=== PATIENT | female | born 1940 | race Caucasian/White ===

== ENCOUNTER 2017-12-24 10:11 | Emergency (ER) | payer MEDICARE ==
[~2017-12-24 10:11] MED LIST: ACET1TAB25 PO; ALPR0.255 PO; AMLO5TAB5 PO; CITA40TA6 PO; DEXL60CA3 PO; DEXT1TAB12 PO; DICY10CA13 PO; DOXY100C2 PO; HYDR-4068 PO; INSU100V12 SQ; LEVO50 PO; LINA145C PO; LISI40TA4 PO; METH500T6 PO; PREG75 PO; RANI300T4 PO; ROSU10TA PO; TOLT2CAP21 PO; TRAM50TA4 PO
[2017-12-24] MEDS ORDERED: HYDROCODONE/ACETAMINOPHEN 5/325 MG TAB ONE (10:35)
[2017-12-24] MEDS ORDERED: LISINOPRIL 40 MG TABLET PO SCH (10:45)
[2017-12-24 11:17] LABS: CREATININE 0.8 mg/dL (0.5-1.5); POTASSIUM 4.3 mmol/L (3.5-5.1)
[2017-12-24 11:31] LABS: ALBUMIN 3.3 g/dL (3.5-5.0); BILIRUBIN,DIRECT 0.1 mg/dL (0.0-0.3); BILIRUBIN,TOTAL 0.5 mg/dL (0.2-1.0); CREATINE KINASE MB 0.8 ng/mL (0.5-3.6); TOTAL PROTEIN, SERUM 6.8 g/dL (6.0-8.3)
[2017-12-24 11:33] LABS: BASOPHILS % (AUTO) 0.4 % (0.0-5.0); HEMATOCRIT 36.3 % (36-48); LYMPHOCYTES % (AUTO) 14.2 % (21.0-51.0); MEAN CORPUSCULAR HEMOGLOBIN 26.8 pg (27.0-33.0); MEAN CORPUSCULAR HGB CONC 32.7 g/dL (32.0-36.0); MEAN CORPUSCULAR VOLUME 81.9 fL (79-99); MONOCYTES % (AUTO) 8.8 % (3.0-13.0); NEUTROPHILS % (AUTO) 75.6 % (40.0-77.0); NUCLEATED RED BLOOD CELLS 0.1 % (0.0-0.19); PLATELET COUNT (AUTO) 271 K/uL (130-400); RED BLOOD CELL COUNT(AUTO) 4.43 MIL/uL (4.00-5.50); RED CELL DISTRIBUTION WIDTH 14.9 % (11.0-15.5); WHITE BLOOD COUNT (AUTO) 10.7 K/uL (4.8-10.8)
[2017-12-24 11:35] LABS: INR 0.95 (0.85-1.15); PARTIAL THROMBOPLASTIN TIME 25.6 SEC (26.3-35.5)
== END 2017-12-24 16:10 | disposition home or self-care (01) ==
LOC: EDH 10:11
DX: G89.4 Chronic pain syndrome (principal); M25.532 Pain in left wrist; I10 Essential (primary) hypertension; M19.90 Unspecified osteoarthritis, unspecified site; R79.1 Abnormal coagulation profile; Z91.040 Latex allergy status; Z91.041 Radiographic dye allergy status; Z88.2 Allergy status to sulfonamides; Z88.6 Allergy status to analgesic agent
CPT/HCPCS: 36415; 73110; 80048; 80076; 82550; 82553; 84484; 85025; 85610; 85730; 93005

== ENCOUNTER 2018-05-13 08:39 | Emergency (ER) | payer MEDICARE ==
[2018-05-13 09:12] LABS: APPEARANCE,URINE Clear (CLEAR); BILIRUBIN,URINE Negative (NEGATIVE); COLOR,URINE Yellow (YELLOW); GLUCOSE, URINE (UA) Negative (NEGATIVE); KETONES,URINE Negative (NEGATIVE); LEUKOCYTE ESTERASE ,URINE Trace (NEGATIVE); NITRATE,URINE Negative (NEGATIVE); OCCULT BLOOD,URINE Negative (NEGATIVE); PROTEIN,URINE Negative (NEGATIVE)
[2018-05-13 09:13] LABS: BACTERIA,URINE Rare /HPF (None Seen); RBC,URINE 0-1 /HPF (0-1)
[2018-05-13 09:14] LABS: SQUAMOUS EPITHELIAL CELL,UR Rare /HPF (0-2)
== END 2018-05-13 09:30 | disposition home or self-care (01) ==
LOC: EDH 08:39
DX: M54.12 Radiculopathy, cervical region (principal); R20.2 Paresthesia of skin; M19.90 Unspecified osteoarthritis, unspecified site; I10 Essential (primary) hypertension; G89.29 Other chronic pain; M54.9 Dorsalgia, unspecified; Z88.2 Allergy status to sulfonamides; Z88.8 Allergy status to other drugs, medicaments and biological substances; Z90.710 Acquired absence of both cervix and uterus; Z90.49 Acquired absence of other specified parts of digestive tract; Z95.0 Presence of cardiac pacemaker; Z98.890 Other specified postprocedural states
CPT/HCPCS: 81001

== ENCOUNTER → 2018-08-02 | Outpatient (CLI) | payer MEDICARE | END | disposition home or self-care (01) | LOC: OIH 13:42 | PROVIDERS: ATTEND Neurological Surgery | DX: M43.16 Spondylolisthesis, lumbar region (principal); M48.061 Spinal stenosis, lumbar region without neurogenic claudication; M43.27 Fusion of spine, lumbosacral region | CPT/HCPCS: 72120 ==

== ENCOUNTER → 2019-01-28 | Outpatient (CLI) | payer MEDICARE ==
[~2019-01-28] MED LIST changes: -ROSU10TA PO; +ROSU10TA22 PO
== END | disposition home or self-care (01) ==
LOC: SHCH 09:32
PROVIDERS: ATTEND Internal Medicine Cardiovascular Disease
DX: I11.9 Hypertensive heart disease without heart failure (principal); I08.0 Rheumatic disorders of both mitral and aortic valves
CPT/HCPCS: 93306

== ENCOUNTER 2019-07-10 07:41 | Emergency (ER) | payer MEDICARE ==
[2019-07-10 09:01] LABS: BASOPHILS % (AUTO) 0.7 % (0.0-5.0); HEMATOCRIT 34.8 % (36-48); LYMPHOCYTES % (AUTO) 18.5 % (21.0-51.0); MEAN CORPUSCULAR HEMOGLOBIN 26.3 pg (27.0-33.0); MEAN CORPUSCULAR HGB CONC 32.5 g/dL (32.0-36.0); MEAN CORPUSCULAR VOLUME 80.8 fL (79-99); MONOCYTES % (AUTO) 8.2 % (3.0-13.0); NEUTROPHILS % (AUTO) 70.6 % (40.0-77.0); PLATELET COUNT (AUTO) 303 K/uL (130-400); RED BLOOD CELL COUNT(AUTO) 4.31 MIL/uL (4.00-5.50); RED CELL DISTRIBUTION WIDTH 15.3 % (11.0-15.5); WHITE BLOOD COUNT (AUTO) 8.9 K/uL (4.8-10.8)
[2019-07-10 09:07] LABS: CREATININE 0.9 mg/dL (0.5-1.5); POTASSIUM 3.5 mmol/L (3.5-5.1)
[2019-07-10 09:08] LABS: INR 0.99 (0.85-1.15); PARTIAL THROMBOPLASTIN TIME 26.7 SEC (26.3-35.5); PROTHROMBIN TIME 10.4 SEC (9.6-11.6)
[2019-07-10 09:13] LABS: ALBUMIN 3.2 g/dL (3.5-5.0); BILIRUBIN,TOTAL 0.5 mg/dL (0.2-1.0); TOTAL PROTEIN, SERUM 7.4 g/dL (6.0-8.3)
[2019-07-10 09:58] LABS: B-TYPE NATRIURETIC PEPTIDE 26 pg/mL (0-100)
== END 2019-07-10 10:35 | disposition home or self-care (01) ==
LOC: EDH 07:41
DX: B34.9 Viral infection, unspecified (principal); I10 Essential (primary) hypertension; E11.9 Type 2 diabetes mellitus without complications; I25.10 Atherosclerotic heart disease of native coronary artery without angina pectoris; Z90.49 Acquired absence of other specified parts of digestive tract; Z90.710 Acquired absence of both cervix and uterus; Z88.2 Allergy status to sulfonamides; Z88.6 Allergy status to analgesic agent; Z88.8 Allergy status to other drugs, medicaments and biological substances; Z88.4 Allergy status to anesthetic agent; Z88.1 Allergy status to other antibiotic agents; Z79.899 Other long term (current) drug therapy
CPT/HCPCS: 36415; 71045; 80053; 82550; 82948; 83605; 83880; 84484; 85025; 85610; 85730; 87040; 93005

== ENCOUNTER 2019-12-25 13:03 | Emergency (ER) | payer MEDICARE ==
[~2019-12-25 13:03] MED LIST changes: -ACET1TAB25 PO; -ALPR0.255 PO; +AMLO-257 PO; -AMLO5TAB5 PO; +CEFD300C3 PO; -CITA40TA6 PO; -DEXT1TAB12 PO; -DICY10CA13 PO; -DOXY100C2 PO; +DULO20CA18 PO; -HYDR-4068 PO; -INSU100V12 SQ; +LEVO125T11 PO; -LEVO50 PO; +LISI-613 PO; -LISI40TA4 PO; +MECL-160 PO; -METH500T6 PO; +METO25TA6 PO; +PREG100C55 PO; -PREG75 PO; -RANI300T4 PO; -ROSU10TA22 PO; +ROSU10TA28 PO; +SUCR1TAB2 PO; -TOLT2CAP21 PO; -TRAM50TA4 PO
[2019-12-25] MEDS ORDERED: SODIUM CHLORIDE 0.9% 1000ML 1,000 ML IV ONE (13:04)
[2019-12-25] MEDS ORDERED: CEFTRIAXONE SODIUM 2 GM VIAL ONE ×2 (13:41→14:03)
[2019-12-25] MEDS ORDERED: SODIUM CHLORIDE 0.9% 100 ML IV ONE ×2 (13:42→14:03)
[2019-12-25 14:26] LABS: BASOPHILS % (AUTO) 0.4 % (0.0-5.0); EOSINOPHILS % (AUTO) 0.6 % (0.0-8.0); LYMPHOCYTES % (AUTO) 17.8 % (21.0-51.0); MEAN CORPUSCULAR HEMOGLOBIN 25.8 pg (27.0-33.0); MEAN CORPUSCULAR HGB CONC 31.1 g/dL (32.0-36.0); MONOCYTES % (AUTO) 8.1 % (3.0-13.0); NEUTROPHILS % (AUTO) 72.9 % (40.0-77.0); PLATELET COUNT (AUTO) 378 K/uL (130-400); RED BLOOD CELL COUNT(AUTO) 4.58 MIL/uL (4.00-5.50); RED CELL DISTRIBUTION WIDTH 15.7 % (11.0-15.5); WHITE BLOOD COUNT (AUTO) 10.2 K/uL (4.8-10.8)
[2019-12-25 14:35] LABS: CARBON DIOXIDE 22 mmol/L (21-32); CHLORIDE 101 mmol/L (101-111); CREATININE 1.1 mg/dL (0.5-1.5); GLOMERULAR FILTR. RATE CALC 51 mL/min (>60); GLUCOSE,RANDOM 238 mg/dL (70-105); INR 0.99 (0.85-1.15); POTASSIUM 3.6 mmol/L (3.5-5.1); PROTHROMBIN TIME 10.7 SEC (9.6-11.6); SODIUM SERUM 137 mmol/L (136-145); UREA NITROGEN, BLOOD 27 mg/dL (7-18)
[2019-12-25 14:50] LABS: ALANINE AMINOTRANSFERASE 26 U/L (12-78); ALBUMIN 3.4 g/dL (3.5-5.0); ASPARTATE AMINOTRANSFERASE 54 U/L (10-37); BILIRUBIN,TOTAL 0.3 mg/dL (0.2-1.0); MYOGLOBIN 526 ng/mL (10-92); TOTAL PROTEIN, SERUM 7.4 g/dL (6.0-8.3); TROPONIN I < 0.04 ng/mL (0.00-0.06)
[2019-12-25 14:55] LABS: CREATINE KINASE, TOTAL 437 U/L (21-232)
[2019-12-25 17:03] LABS: APPEARANCE,URINE Clear (CLEAR); BILIRUBIN,URINE Negative (NEGATIVE); COLOR,URINE Yellow (YELLOW); GLUCOSE, URINE (UA) 250 mg/dL (NEGATIVE); KETONES,URINE 40 mg/dL (NEGATIVE); LEUKOCYTE ESTERASE ,URINE Negative (NEGATIVE); NITRATE,URINE Negative (NEGATIVE); OCCULT BLOOD,URINE Trace (NEGATIVE); PH,URINE 5.5 (5.0-8.0); PROTEIN,URINE POS 1+ mg/dL (NEGATIVE)
[2019-12-25 17:27] LABS: BACTERIA,URINE Few /HPF (None Seen); MUCUS,URINE Few LPF (None Seen); SQUAMOUS EPITHELIAL CELL,UR 0-2 /HPF (0-2)
== END 2019-12-25 17:32 | disposition home or self-care (01) ==
LOC: EDH 13:03
DX: E11.65 Type 2 diabetes mellitus with hyperglycemia (principal); R53.1 Weakness; I10 Essential (primary) hypertension; I25.10 Atherosclerotic heart disease of native coronary artery without angina pectoris; M19.90 Unspecified osteoarthritis, unspecified site; G89.29 Other chronic pain; M54.9 Dorsalgia, unspecified; Z95.0 Presence of cardiac pacemaker; Z90.710 Acquired absence of both cervix and uterus; Z90.49 Acquired absence of other specified parts of digestive tract; Z98.890 Other specified postprocedural states; Z88.1 Allergy status to other antibiotic agents; Z88.8 Allergy status to other drugs, medicaments and biological substances; Z88.5 Allergy status to narcotic agent; Z88.6 Allergy status to analgesic agent; Z88.2 Allergy status to sulfonamides; Z91.041 Radiographic dye allergy status
CPT/HCPCS: 36415; 71045; 80053; 81001; 82550; 82948; 83605; 83874; 84145; 84484; 85025; 85610; 85730; 87088; 87635; 87804 ×2; 93005; 96361; 96374; 99285; J0696; J7030

== ENCOUNTER 2020-01-29 14:20 | Inpatient (IN) | payer MEDICARE ==
[~2020-01-29] VITALS: Ht 152.4 cm; Wt 86.6 kg
[~2020-01-29 14:20] MED LIST changes: -AMLO-257 PO; +AMLO5TAB9 PO
[2020-01-29] MEDS ORDERED: SODIUM CHLORIDE 0.9% 1000ML 1,000 ML IV ONE (17:05)
[2020-01-29 17:18] LABS: BASOPHILS % (AUTO) 0.4 % (0.0-5.0); EOSINOPHILS % (AUTO) 0.3 % (0.0-8.0); HEMATOCRIT 34.9 % (36-48); LYMPHOCYTES % (AUTO) 13.5 % (21.0-51.0); MEAN CORPUSCULAR HGB CONC 32.7 g/dL (32.0-36.0); MEAN CORPUSCULAR VOLUME 79.7 fL (79-99); MONOCYTES % (AUTO) 4.8 % (3.0-13.0); NEUTROPHILS % (AUTO) 80.4 % (40.0-77.0); PLATELET COUNT (AUTO) 150 K/uL (130-400); RED BLOOD CELL COUNT(AUTO) 4.38 MIL/uL (4.00-5.50); RED CELL DISTRIBUTION WIDTH 14.6 % (11.0-15.5)
[2020-01-29 17:36] LABS: INR 0.98 (0.85-1.15); PROTHROMBIN TIME 10.6 SEC (9.6-11.6)
[2020-01-29 17:37] LABS: CARBON DIOXIDE 25 mmol/L (21-32); CREATININE 1.1 mg/dL (0.5-1.5); GLOMERULAR FILTR. RATE CALC 51 mL/min (>60); GLUCOSE,RANDOM 190 mg/dL (70-105); SODIUM SERUM 125 mmol/L (136-145); UREA NITROGEN, BLOOD 20 mg/dL (7-18)
[2020-01-29 17:42] LABS: CHLORIDE 90 mmol/L (101-111)
[2020-01-29 17:49] LABS: ALANINE AMINOTRANSFERASE 52 U/L (12-78); ALBUMIN 2.5 g/dL (3.5-5.0); ASPARTATE AMINOTRANSFERASE 79 U/L (10-37); BILIRUBIN,TOTAL 0.4 mg/dL (0.2-1.0); CREATINE KINASE, TOTAL 83 U/L (21-232); MYOGLOBIN 92 ng/mL (10-92); PARTIAL THROMBOPLASTIN TIME 27.7 SEC (26.3-35.5); TOTAL PROTEIN, SERUM 6.7 g/dL (6.0-8.3); TROPONIN I < 0.04 ng/mL (0.00-0.06)
[2020-01-29 17:53] LABS: APPEARANCE,URINE Cloudy (CLEAR); BILIRUBIN,URINE Small (NEGATIVE); COLOR,URINE Dark Yellow (YELLOW); GLUCOSE, URINE (UA) 500 mg/dL (NEGATIVE); KETONES,URINE Trace mg/dL (NEGATIVE); LEUKOCYTE ESTERASE ,URINE Negative (NEGATIVE); NITRATE,URINE Negative (NEGATIVE); OCCULT BLOOD,URINE Large (NEGATIVE); PH,URINE 5.5 (5.0-8.0); PROTEIN,URINE 300 mg/dL (NEGATIVE)
[2020-01-29 18:02] LABS: AMPHET/METH SCREEN,URINE NEGATIVE (NEGATIVE); BARBITURATE SCREEN, URINE NEGATIVE (NEGATIVE); BENZODIAZEPINES SCREEN,URINE NEGATIVE (NEGATIVE); CANNABINOID SCREEN,URINE NEGATIVE (NEGATIVE); COCAINE SCREEN,URINE NEGATIVE (NEGATIVE); OPIATE SCREEN,URINE NEGATIVE (NEGATIVE); PHENCYCLIDINE SCREEN,URINE NEGATIVE (NEGATIVE)
[2020-01-29 18:30] LABS: BACTERIA,URINE Few /HPF (None Seen); MUCUS,URINE Few LPF (None Seen); RBC,URINE 26-50 /HPF (0-1); SQUAMOUS EPITHELIAL CELL,UR Moderate /HPF (0-2)
[2020-01-29] MEDS ORDERED: SODIUM CHLORIDE 0.9% 1000ML 1,000 ML IV SCH (19:07)
[2020-01-29] MEDS ORDERED: ONDANSETRON HCL 4 MG/2 ML VIAL IV PRN (19:15)
[2020-01-29] MEDS ORDERED: CEFTRIAXONE SODIUM 1 GM ONE (19:21)
[2020-01-29] MEDS ORDERED: CEFTRIAXONE SODIUM 1 GM IV SCH (20:00)
[2020-01-29] MEDS: INSULIN HUMULIN R 100 UNIT/ML 3ML SQ SCH (21:00)
[2020-01-29 22:30] VITALS: BP 159/72
--- NOTE | 2020-01-30 00:59 | NUR ---
Patient unable to sign admission papers due to altered mental status.
[2020-01-30 03:47] VITALS: BP 150/77
[2020-01-30 04:02] LABS: BASOPHILS % (AUTO) 0.3 % (0.0-5.0); EOSINOPHILS % (AUTO) 0.3 % (0.0-8.0); HEMATOCRIT 31.4 % (36-48); LYMPHOCYTES % (AUTO) 11.3 % (21.0-51.0); MEAN CORPUSCULAR HEMOGLOBIN 25.8 pg (27.0-33.0); MEAN CORPUSCULAR HGB CONC 32.5 g/dL (32.0-36.0); MEAN CORPUSCULAR VOLUME 79.3 fL (79-99); MONOCYTES % (AUTO) 4.6 % (3.0-13.0); PLATELET COUNT (AUTO) 121 K/uL (130-400); RED BLOOD CELL COUNT(AUTO) 3.96 MIL/uL (4.00-5.50); RED CELL DISTRIBUTION WIDTH 14.7 % (11.0-15.5); WHITE BLOOD COUNT (AUTO) 9.4 K/uL (4.8-10.8)
[2020-01-30 04:09] LABS: CREATININE 1.1 mg/dL (0.5-1.5); POTASSIUM 3.5 mmol/L (3.5-5.1)
[2020-01-30] MEDS: INSULIN HUMULIN R 100 UNIT/ML 3ML SQ SCH ×4 (05:47→21:00)
[2020-01-30 08:39] VITALS: BP 180/78
[2020-01-30] MEDS: ENOXAPARIN SODIUM 30 MG/0.3 ML SQ SCH (09:06)
[2020-01-30] MEDS ORDERED: TEMAZEPAM 7.5 MG CAPSULE PO PRN (11:45)
[2020-01-30] MEDS: HYDRALAZINE HCL 20 MG/ML VIAL IV PRN (12:06)
[2020-01-30] MEDS: ACETAMINOPHEN 325 MG TAB PO PRN (12:08)
[2020-01-30 13:09] VITALS: BP 137/52
--- NOTE | 2020-01-30 14:45 | NUR ---
DCP CM met with pt and family discussed dc plans. Pt is independent prior to admission, lives at home with spouse. Currently with [facility]. Denies any other equipments/services. Feels safe to go back home, spouse and daughter able to assist with transportation and needs as necessary. DC plan to home once stable. CM to cont to follow up. Addendum: 01/30/20 at 1447 by SANTINO CARRASQUILLO LVN CM Amended: Links added.
[2020-01-30 16:13] VITALS: BP 141/58
[2020-01-30] MEDS: SODIUM CHLORIDE 3% 500 ML IV SCH (16:43)
[2020-01-30 17:34] LABS: CREATININE 1.1 mg/dL (0.5-1.5); POTASSIUM 3.4 mmol/L (3.5-5.1)
[2020-01-30 17:38] LABS: THYROID STIMULATING HORMONE 0.06 uIU/mL (0.36-3.74); URIC ACID 3.3 mg/dL (2.6-7.2)
[2020-01-30 19:46] VITALS: BP 106/76
[2020-01-30] MEDS ORDERED: TEMAZEPAM 7.5 MG CAPSULE PO SCH (21:00)
[2020-01-30] MEDS: CEFTRIAXONE SODIUM 1 GM IV SCH (21:48)
[2020-01-30] MEDS: SERTRALINE HCL 50 MG TABLET PO SCH (21:48)
[2020-01-30 23:58] VITALS: BP 147/67
[2020-01-31 03:45] VITALS: BP 159/72
[2020-01-31 03:48] LABS: BASOPHILS % (AUTO) 0.4 % (0.0-5.0); EOSINOPHILS % (AUTO) 0.1 % (0.0-8.0); HEMATOCRIT 31.3 % (36-48); LYMPHOCYTES % (AUTO) 9.7 % (21.0-51.0); MEAN CORPUSCULAR HEMOGLOBIN 25.5 pg (27.0-33.0); MEAN CORPUSCULAR HGB CONC 32.3 g/dL (32.0-36.0); MONOCYTES % (AUTO) 4.4 % (3.0-13.0); NEUTROPHILS % (AUTO) 84.3 % (40.0-77.0); PLATELET COUNT (AUTO) 128 K/uL (130-400); RED BLOOD CELL COUNT(AUTO) 3.96 MIL/uL (4.00-5.50); RED CELL DISTRIBUTION WIDTH 15.1 % (11.0-15.5); WHITE BLOOD COUNT (AUTO) 9.3 K/uL (4.8-10.8)
[2020-01-31 04:03] LABS: CREATININE 0.9 mg/dL (0.5-1.5); POTASSIUM 3.4 mmol/L (3.5-5.1)
[2020-01-31] MEDS: INSULIN HUMULIN R 100 UNIT/ML 3ML SQ SCH ×4 (05:49→20:19)
[2020-01-31] MEDS: SODIUM CHLORIDE 3% 500 ML IV SCH (06:52)
[2020-01-31 08:00] VITALS: BP 174/69
[2020-01-31] MEDS: CEFTRIAXONE SODIUM 1 GM IV SCH ×2 (09:05→20:19)
[2020-01-31] MEDS: ENOXAPARIN SODIUM 30 MG/0.3 ML SQ SCH (09:06)
[2020-01-31 12:00] VITALS: BP 161/75
[2020-01-31] MEDS: ACETAMINOPHEN 325 MG TAB PO PRN ×3 (12:42→23:17)
[2020-01-31] MEDS ORDERED: INSU100I3 SQ (13:07)
[2020-01-31] MEDS ORDERED: INSU100I24 SQ (13:09)
[2020-01-31] MEDS ORDERED: TRAM50TA4 PO (13:10)
[2020-01-31 16:00] VITALS: BP 145/67
[2020-01-31 19:28] VITALS: BP 148/61
[2020-01-31] MEDS: ATORVASTATIN CALCIUM 20 MG TABLET PO SCH (20:18)
[2020-01-31] MEDS: METOPROLOL TARTRATE 25 MG TAB PO SCH (20:19)
[2020-01-31] MEDS: SERTRALINE HCL 50 MG TABLET PO SCH (20:19)
[2020-01-31] MEDS: TRAMADOL HCL 50 MG TABLET PO PRN (21:02)
[2020-01-31 23:26] VITALS: BP 151/64
[2020-02-01 03:10] VITALS: BP 147/71
--- NOTE | 2020-02-01 03:26 | NUR ---
PATIENT ALERT AND ORIENTED TO SELF. SHE DOES NOT KNOW LOCATION OR REASON SHE IS IN THE HOSPITAL. FORGETFUL AND CONFUSED THROUGHOUT THE NIGHT. SHE CALLED FOR YAZ SEVERAL TIMES. REORIENTED PATIENT CONSTANTLY. PATIENT WEAK. RESTING IN BED. WEARING A BRIEF FOR INCONTINENCE. LUNG SOUNDS BASES CRACKLES. USING 2L VIA NC. NO DISTRESS NOTED. MEDICATED ONCE FOR FEVER.
[2020-02-01] MEDS: INSULIN HUMULIN R 100 UNIT/ML 3ML SQ SCH ×4 (06:10→21:25)
[2020-02-01 06:18] LABS: HEMATOCRIT 40.9 % (36-48); RED BLOOD CELL COUNT(AUTO) 5.01 MIL/uL (4.00-5.50); WHITE BLOOD COUNT (AUTO) 10.1 K/uL (4.8-10.8)
[2020-02-01 06:19] LABS: BASOPHILS % (AUTO) 0.5 % (0.0-5.0); EOSINOPHILS % (AUTO) 0.1 % (0.0-8.0); LYMPHOCYTES % (AUTO) 10.4 % (21.0-51.0); MEAN CORPUSCULAR HEMOGLOBIN 25.7 pg (27.0-33.0); MEAN CORPUSCULAR HGB CONC 31.5 g/dL (32.0-36.0); MEAN CORPUSCULAR VOLUME 81.6 fL (79-99); MONOCYTES % (AUTO) 3.4 % (3.0-13.0); NEUTROPHILS % (AUTO) 84.6 % (40.0-77.0); PLATELET COUNT (AUTO) 135 K/uL (130-400); RED CELL DISTRIBUTION WIDTH 15.7 % (11.0-15.5)
[2020-02-01] MEDS: LEVOTHYROXINE 125 MCG TABLET PO SCH (06:37)
[2020-02-01 06:53] LABS: ALBUMIN 1.9 g/dL (3.5-5.0); BILIRUBIN,TOTAL 0.4 mg/dL (0.2-1.0); POTASSIUM 3.8 mmol/L (3.5-5.1); TOTAL PROTEIN, SERUM 5.9 g/dL (6.0-8.3)
[2020-02-01 08:34] VITALS: BP 166/100
[2020-02-01] MEDS ORDERED: NON-FORMULARY MEDICATION 1 EACH (Rosuvastatin Calcium 10 MG) PO SCH (09:00)
[2020-02-01] MEDS: METOPROLOL TARTRATE 25 MG TAB PO SCH ×2 (10:26→20:02)
[2020-02-01] MEDS: AMLODIPINE BESYLATE 5 MG TAB PO SCH (10:26)
[2020-02-01] MEDS: CEFTRIAXONE SODIUM 1 GM IV SCH ×2 (10:26→20:01)
[2020-02-01] MEDS: ENOXAPARIN SODIUM 30 MG/0.3 ML SQ SCH (10:27)
[2020-02-01 11:22] VITALS: BP 162/80
[2020-02-01] MEDS: ACETAMINOPHEN 325 MG TAB PO PRN ×2 (11:53→21:43)
[2020-02-01] MEDS ORDERED: VANCOMYCIN PROTOCOL PER PHARMACY IV SCH (12:00)
--- NOTE | 2020-02-01 14:15 | NUR ---
DR. REDDY IN TO SEE PT, CONSULT REQUEST. WILL TEST PT. FOR COVIC-19. ALSO RECEIVED ORDERS TO TRANSFER PT. TO [facility]. FLOOR, REPORT CALLED TO SKYLAR. WILL DO COVIC TESTING PRIOR TO TRANSFERRING PT.
--- NOTE | 2020-02-01 15:30 | NUR ---
patient received to room 203, patient is lethargic but easily arousable and oriented. 3lnc
[2020-02-01 15:57] VITALS: BP 141/74
[2020-02-01] MEDS: VANCOMYCIN 1GM+NS 250ML 250 ML IV SCH (17:53)
[2020-02-01 19:44] VITALS: BP 167/70
[2020-02-01] MEDS: ATORVASTATIN CALCIUM 20 MG TABLET PO SCH (20:01)
[2020-02-01] MEDS: SERTRALINE HCL 50 MG TABLET PO SCH (20:02)
[2020-02-01] MEDS: HYDRALAZINE HCL 20 MG/ML VIAL IV PRN (21:48)
[2020-02-01 23:53] VITALS: BP 121/65
[2020-02-02 02:48] LABS: CREATININE,URINE RANDOM 167 mg/dL (30-135); POTASSIUM,URINE RANDOM 34 mmol/L (25-125); SODIUM,URINE RANDOM 21 mmol/l (40-220)
[2020-02-02] MEDS ORDERED: DEXAMETHASONE SOD PHOSPHATE 4 MG/ML 1ML VIAL ONE (03:08)
[2020-02-02] MEDS ORDERED: SODIUM CHLORIDE 0.9% 50 ML IV ONE (03:09)
[2020-02-02] MEDS: AMPICILLIN 2GM+NS 100ML 100 ML IV SCH ×2 (03:26)
[2020-02-02 03:42] VITALS: BP 153/73
[2020-02-02] MEDS: LACTULOSE 20 GM/30 ML UDCUP PO PRN (03:54)
[2020-02-02] MEDS: DEXAMETHASONE 10MG/ML 1ML VIAL 10 MG in SODIUM CHLORIDE 0.9% 50 ML IV SCH ×3 (05:36)
[2020-02-02] MEDS: INSULIN HUMULIN R 100 UNIT/ML 3ML SQ SCH ×5 (05:45→21:31)
[2020-02-02] MEDS: LEVOTHYROXINE 125 MCG TABLET PO SCH (05:52)
[2020-02-02 06:50] LABS: BASOPHILS % (AUTO) 0.3 % (0.0-5.0); LYMPHOCYTES % (AUTO) 8.2 % (21.0-51.0); MEAN CORPUSCULAR HEMOGLOBIN 25.3 pg (27.0-33.0); MEAN CORPUSCULAR HGB CONC 31.9 g/dL (32.0-36.0); MEAN CORPUSCULAR VOLUME 79.4 fL (79-99); MONOCYTES % (AUTO) 2.1 % (3.0-13.0); NEUTROPHILS % (AUTO) 88.4 % (40.0-77.0); PLATELET COUNT (AUTO) 156 K/uL (130-400); RED BLOOD CELL COUNT(AUTO) 4.03 MIL/uL (4.00-5.50); RED CELL DISTRIBUTION WIDTH 15.7 % (11.0-15.5); WHITE BLOOD COUNT (AUTO) 10.5 K/uL (4.8-10.8)
[2020-02-02 07:27] LABS: ALBUMIN 1.6 g/dL (3.5-5.0); CREATININE 1.2 mg/dL (0.5-1.5)
[2020-02-02 07:49] LABS: BILIRUBIN,TOTAL 0.5 mg/dL (0.2-1.0)
[2020-02-02] MEDS ORDERED: CEFTRIAXONE SODIUM 1 GM IV SCH ×2 (08:00→20:00)
[2020-02-02 08:21] VITALS: BP 155/78
[2020-02-02] MEDS: ENOXAPARIN SODIUM 80 MG/0.8 ML SQ SCH ×2 (09:22→21:20)
[2020-02-02] MEDS: AMLODIPINE BESYLATE 5 MG TAB PO SCH (09:22)
[2020-02-02] MEDS: METOPROLOL TARTRATE 25 MG TAB PO SCH ×2 (09:22→21:20)
[2020-02-02] MEDS ORDERED: POTASSIUM CHLORIDE 10% ELIXIR 20 MEQ/15 ML UDCUP PO PRN (11:00)
[2020-02-02] MEDS ORDERED: LIDOCAINE HCL-MPF 1% 2ML VIAL IJ PRN (11:00)
[2020-02-02] MEDS ORDERED: POTASSIUM CHLORIDE 20MEQ/100ML 100 ML IV PRN ×2 (11:00→16:00)
[2020-02-02] MEDS ORDERED: DEXAMETHASONE 10MG/ML 1ML VIAL 10 MG in SODIUM CHLORIDE 0.9% 50 ML IV SCH (12:00)
[2020-02-02 12:23] VITALS: BP 129/56
[2020-02-02] MEDS: VANCOMYCIN 1GM+NS 250ML 250 ML IV SCH (12:28)
[2020-02-02] MEDS: POTASSIUM CHLORIDE 20 MEQ ERTAB PO PRN ×4 (12:30→21:35)
--- NOTE | 2020-02-02 12:30 | NUR ---
PATIENT TRANSFERRED FROM 4TH TO SECOND FLOOR. AWAIT NEW ORDERS TO RESUME PT. Addendum: 02/02/20 at 1231 by BABATUNDE REYES PT Amended: Links added.
[2020-02-02] MEDS ORDERED: COMPOUND IV MISC 1 EACH IVSOLN MISC PRN (12:45)
--- NOTE | 2020-02-02 14:50 | NUR ---
REPORT REPORT CALLED YAZ WEAVER, PT TO BE TRANSFERRED TO ROOM 409
[2020-02-02 15:30] VITALS: BP 104/61
[2020-02-02] MEDS: FAMOTIDINE/PF 20 MG/2 ML VIAL IV SCH (16:21)
[2020-02-02 20:41] VITALS: BP 133/74
[2020-02-02] MEDS: CEFTRIAXONE SODIUM 2 GM VIAL IVP SCH (21:19)
[2020-02-02] MEDS: SERTRALINE HCL 50 MG TABLET PO SCH (21:20)
[2020-02-02] MEDS: ATORVASTATIN CALCIUM 20 MG TABLET PO SCH (21:20)
[2020-02-02] MEDS: TRAMADOL HCL 50 MG TABLET PO PRN (21:34)
--- NOTE | 2020-02-02 22:00 | NUR ---
CONFUSED Pt has episode of disorientation.Reoriented per staff.
[2020-02-03 00:13] VITALS: BP 130/67
[2020-02-03] MEDS: ACETAMINOPHEN 325 MG TAB PO PRN (04:00)
[2020-02-03 04:22] VITALS: BP 128/65
--- NOTE | 2020-02-03 04:30 | NUR ---
HEADACHE Pt complains of headache,tylenol given.
[2020-02-03 05:25] LABS: BASOPHILS % (AUTO) 0.4 % (0.0-5.0); EOSINOPHILS % (AUTO) 0.2 % (0.0-8.0); HEMATOCRIT 35.9 % (36-48); LYMPHOCYTES % (AUTO) 9.3 % (21.0-51.0); MEAN CORPUSCULAR HEMOGLOBIN 25.1 pg (27.0-33.0); MEAN CORPUSCULAR HGB CONC 29.5 g/dL (32.0-36.0); MEAN CORPUSCULAR VOLUME 85.1 fL (79-99); MONOCYTES % (AUTO) 3.1 % (3.0-13.0); PLATELET COUNT (AUTO) 146 K/uL (130-400); RED BLOOD CELL COUNT(AUTO) 4.22 MIL/uL (4.00-5.50); RED CELL DISTRIBUTION WIDTH 16.2 % (11.0-15.5); WHITE BLOOD COUNT (AUTO) 16.4 K/uL (4.8-10.8)
[2020-02-03 05:47] LABS: ALBUMIN 1.8 g/dL (3.5-5.0); BILIRUBIN,TOTAL 0.4 mg/dL (0.2-1.0); CREATININE 1.1 mg/dL (0.5-1.5); TOTAL PROTEIN, SERUM 5.5 g/dL (6.0-8.3)
[2020-02-03] MEDS: LEVOTHYROXINE 125 MCG TABLET PO SCH (06:06)
[2020-02-03] MEDS: INSULIN HUMULIN R 100 UNIT/ML 3ML SQ SCH ×4 (06:09→21:14)
[2020-02-03 08:33] VITALS: BP 146/64
[2020-02-03] MEDS: METOPROLOL TARTRATE 25 MG TAB PO SCH ×2 (10:00→21:02)
[2020-02-03] MEDS: AMLODIPINE BESYLATE 5 MG TAB PO SCH (10:00)
[2020-02-03] MEDS: ENOXAPARIN SODIUM 80 MG/0.8 ML SQ SCH ×2 (10:01→21:02)
[2020-02-03 11:43] VITALS: BP 149/79
[2020-02-03] MEDS ORDERED: SODIUM CHLORIDE 1,000 MG TAB ONE (12:58)
[2020-02-03] MEDS: FAMOTIDINE/PF 20 MG/2 ML VIAL IV SCH (13:30)
[2020-02-03] MEDS: SODIUM CHLORIDE 1,000 MG TAB PO SCH ×2 (13:30→21:02)
[2020-02-03 16:30] VITALS: BP 141/71
[2020-02-03 20:36] VITALS: BP 157/77
[2020-02-03] MEDS: CEFTRIAXONE SODIUM 2 GM VIAL IVP SCH (21:02)
[2020-02-03] MEDS: ATORVASTATIN CALCIUM 20 MG TABLET PO SCH (21:02)
[2020-02-03] MEDS: SERTRALINE HCL 50 MG TABLET PO SCH (21:02)
--- NOTE | 2020-02-03 21:30 | NUR ---
CONFUSED Pt very disoriented to time and place.Talking inappropriately.Reoriented per staff.Side rails up,call light in reach,bed alarm on.Bed in lowest position. Addendum: 02/03/20 at 2131 by VU SUERO RN RN Amended: Links added.
--- NOTE | 2020-02-03 22:00 | NUR ---
PAGED Paged Md/Computer Terminal Operator clinical documentation improvement specialist,pt very agitated,confused.Wants to get up on a chair.She's screaming and disoriented.Reoriented per staff.
[2020-02-03] MEDS ORDERED: LORAZEPAM 2 MG/ML 1 ML VIAL IVP ONE (22:15)
[2020-02-03] MEDS ORDERED: LORAZEPAM 2 MG/ML 1 ML VIAL ONE (23:25)
--- NOTE | 2020-02-03 23:33 | NUR ---
AGITATION Pt cont to be agitated,screaming and yelling at staff,refused vital signs to be taken.Screams "get me up I want to go to bed".Reoriented per staff,Lorazepam given as per one time order per Oneil Kelly Engineering Coordinator.
--- NOTE | 2020-02-04 01:30 | NUR ---
MED EFFECT Pt asleep,respirations even and unlabored.
[2020-02-04 03:30] VITALS: BP 173/86
[2020-02-04] MEDS: HYDRALAZINE HCL 20 MG/ML VIAL IV PRN (03:30)
--- NOTE | 2020-02-04 03:36 | NUR ---
CALM Pt calm,sleeping,arousable.Medicated with Hydralazine for bp >160.
[2020-02-04 04:28] VITALS: BP 137/61
[2020-02-04 04:45] LABS: BASOPHILS % (AUTO) 0.4 % (0.0-5.0); LYMPHOCYTES % (AUTO) 16.3 % (21.0-51.0); MEAN CORPUSCULAR HEMOGLOBIN 25.5 pg (27.0-33.0); MEAN CORPUSCULAR HGB CONC 32.6 g/dL (32.0-36.0); MEAN CORPUSCULAR VOLUME 78.2 fL (79-99); MONOCYTES % (AUTO) 3.6 % (3.0-13.0); NEUTROPHILS % (AUTO) 78.4 % (40.0-77.0); PLATELET COUNT (AUTO) 230 K/uL (130-400); RED BLOOD CELL COUNT(AUTO) 4.35 MIL/uL (4.00-5.50); RED CELL DISTRIBUTION WIDTH 15.9 % (11.0-15.5); WHITE BLOOD COUNT (AUTO) 16.7 K/uL (4.8-10.8)
[2020-02-04 05:11] LABS: BILIRUBIN,TOTAL 0.5 mg/dL (0.2-1.0); MAGNESIUM 2.3 mg/dL (1.80-2.40); PHOSPHORUS 2.6 mg/dL (2.5-4.9); POTASSIUM 4.7 mmol/L (3.5-5.1); TOTAL PROTEIN, SERUM 5.9 g/dL (6.0-8.3)
[2020-02-04] MEDS: LEVOTHYROXINE 125 MCG TABLET PO SCH ×2 (06:06→06:16)
[2020-02-04] MEDS: INSULIN HUMULIN R 100 UNIT/ML 3ML SQ SCH ×4 (06:14→21:54)
--- NOTE | 2020-02-04 06:23 | NUR ---
AWAKE Pt woke up,started screaming again,confused.Refused for staff to touch her to change her diaper.pt refused to take her morning Synthyroid.Screaming and yelling,talking inappropriately,wanting to get up,pt she's too weak.Pt taking off her clothes and grabbing on everything she gets hold of.
[2020-02-04 07:48] VITALS: BP 152/94
[2020-02-04] MEDS: ENOXAPARIN SODIUM 80 MG/0.8 ML SQ SCH ×2 (09:58→21:50)
[2020-02-04] MEDS: SODIUM CHLORIDE 1,000 MG TAB PO SCH ×2 (09:58→21:41)
[2020-02-04] MEDS: AMLODIPINE BESYLATE 5 MG TAB PO SCH (09:58)
[2020-02-04] MEDS: METOPROLOL TARTRATE 25 MG TAB PO SCH ×2 (09:58→21:41)
[2020-02-04 10:19] LABS: INR 0.92 (0.85-1.15)
[2020-02-04 11:25] VITALS: BP 163/70
[2020-02-04 11:45] LABS: % IRON SATURATION 20.7 % (22-44)
[2020-02-04] MEDS: LACTATED RINGERS 1000ML 1,000 ML IV SCH ×2 (13:15→21:55)
[2020-02-04] MEDS ORDERED: LACTATED RINGERS 1000ML 1,000 ML IV ONE (13:43)
[2020-02-04] MEDS ORDERED: LACTATED RINGERS 1000ML 1,000 ML IV SCH (14:00)
--- NOTE | 2020-02-04 15:33 | NUR ---
RD NOTIFICATION Pt admitted with Metabolic Encephalopathy, UTI. Pt with 75gm CCD, 1L fluid restriction in place. Pt tolerating diet order with 75% PO intake, no report of GI distress. Pt with confusion. Pt with Obesity Class I, elevated BG level, elevated LFTs, RUE 2+ edema. Recommend add Heart Healthy diet modification Recommend add 30mL ProMod TID RD to continue to monitor. Please notify RD as additional nutrition concerns arise. Thank you. Addendum: 02/04/20 at [address] Amended: Links added.
[2020-02-04 17:40] VITALS: BP 152/81
[2020-02-04] MEDS: FAMOTIDINE/PF 20 MG/2 ML VIAL IV SCH (17:54)
[2020-02-04] MEDS: ATORVASTATIN CALCIUM 20 MG TABLET PO SCH (21:41)
[2020-02-04] MEDS: CEFTRIAXONE SODIUM 2 GM VIAL IVP SCH (21:44)
[2020-02-05] MEDS ORDERED: TEMAZEPAM 7.5 MG CAPSULE PO ONE (00:35)
[2020-02-05 05:16] LABS: BASOPHILS % (AUTO) 0.4 % (0.0-5.0); EOSINOPHILS % (AUTO) 0.1 % (0.0-8.0); HEMATOCRIT 28.8 % (36-48); MEAN CORPUSCULAR HEMOGLOBIN 25.4 pg (27.0-33.0); MONOCYTES % (AUTO) 5.3 % (3.0-13.0); NEUTROPHILS % (AUTO) 61.2 % (40.0-77.0); PLATELET COUNT (AUTO) 192 K/uL (130-400); RED BLOOD CELL COUNT(AUTO) 3.74 MIL/uL (4.00-5.50); WHITE BLOOD COUNT (AUTO) 13.6 K/uL (4.8-10.8)
[2020-02-05 05:31] LABS: ALBUMIN 1.8 g/dL (3.5-5.0); BILIRUBIN,TOTAL 0.5 mg/dL (0.2-1.0); CREATININE 1.3 mg/dL (0.5-1.5); PHOSPHORUS 2.3 mg/dL (2.5-4.9); POTASSIUM 3.9 mmol/L (3.5-5.1); TOTAL PROTEIN, SERUM 5.3 g/dL (6.0-8.3)
[2020-02-05] MEDS: LEVOTHYROXINE 125 MCG TABLET PO SCH (06:55)
[2020-02-05] MEDS: INSULIN HUMULIN R 100 UNIT/ML 3ML SQ SCH ×4 (06:57→22:33)
[2020-02-05 07:11] VITALS: BP 152/83
[2020-02-05 08:13] LABS: HEPATITIS A ANTIBODY IGM Negative (Negative); HEPATITIS B CORE IGM Negative (Negative); HEPATITIS Bs ANTIGEN SCREEN P Negative (Negative)
[2020-02-05] MEDS: SODIUM CHLORIDE 1,000 MG TAB PO SCH ×2 (09:34→22:31)
[2020-02-05] MEDS: AMLODIPINE BESYLATE 5 MG TAB PO SCH (09:34)
[2020-02-05] MEDS: METOPROLOL TARTRATE 25 MG TAB PO SCH ×2 (09:34→22:31)
[2020-02-05] MEDS: ENOXAPARIN SODIUM 80 MG/0.8 ML SQ SCH ×2 (09:35→22:32)
[2020-02-05 10:26] VITALS: BP 172/90
--- NOTE | 2020-02-05 13:30 | NUR ---
ELEVATED D DIMER CALL PLACED TO Marco PENA TO MAKE AWARE OF ABNORMAL D-DIMER, STATES WILL PLACE ORDERS FOR V Q SCAN
[2020-02-05] MEDS: MEROPENEM 1 GM VIAL IVP SCH ×2 (13:40→22:30)
[2020-02-05 15:54] VITALS: BP 164/68
[2020-02-05 17:09] LABS: ALPHA-1-ANTITRYPSIN 231 mg/dL (101-187)
[2020-02-05] MEDS: FAMOTIDINE/PF 20 MG/2 ML VIAL IV SCH (18:42)
[2020-02-05 22:02] VITALS: BP 147/101
[2020-02-05] MEDS: ATORVASTATIN CALCIUM 20 MG TABLET PO SCH (22:31)
[2020-02-05] MEDS: ACETAMINOPHEN 325 MG TAB PO PRN (22:32)
[2020-02-05 23:30] VITALS: BP 153/81
--- NOTE | 2020-02-06 02:34 | NUR ---
vq scan results notified [employer] of vq scan results, probability of starting eliquis in the am, continue with current treatment plan
[2020-02-06 04:10] VITALS: BP 157/95
[2020-02-06 04:35] LABS: HEMATOCRIT 30.8 % (36-48); MEAN CORPUSCULAR HEMOGLOBIN 25.2 pg (27.0-33.0); MEAN CORPUSCULAR HGB CONC 32.1 g/dL (32.0-36.0); MEAN CORPUSCULAR VOLUME 78.4 fL (79-99); RED BLOOD CELL COUNT(AUTO) 3.93 MIL/uL (4.00-5.50); RED CELL DISTRIBUTION WIDTH 16.2 % (11.0-15.5); WHITE BLOOD COUNT (AUTO) 12.3 K/uL (4.8-10.8)
[2020-02-06 04:47] LABS: CREATININE 1.2 mg/dL (0.5-1.5); POTASSIUM 3.6 mmol/L (3.5-5.1)
[2020-02-06] MEDS: MEROPENEM 1 GM VIAL IVP SCH ×3 (05:31→21:39)
[2020-02-06] MEDS: LEVOTHYROXINE 50 MCG TABLET PO SCH (05:31)
[2020-02-06] MEDS: INSULIN HUMULIN R 100 UNIT/ML 3ML SQ SCH ×4 (06:50→21:36)
[2020-02-06 08:01] VITALS: BP 154/89
[2020-02-06 10:59] VITALS: BP 149/81
[2020-02-06] MEDS ORDERED: VANCOMYCIN PROTOCOL PER PHARMACY IV SCH (12:15)
[2020-02-06] MEDS: AMLODIPINE BESYLATE 5 MG TAB PO SCH (12:21)
[2020-02-06] MEDS: APIXABAN 5 MG TABLET PO SCH ×2 (12:22→21:35)
[2020-02-06] MEDS: METOPROLOL TARTRATE 25 MG TAB PO SCH ×2 (12:22→21:35)
[2020-02-06] MEDS: SODIUM CHLORIDE 1,000 MG TAB PO SCH (12:22)
[2020-02-06 14:40] LABS: INR 1.03 (0.85-1.15); PROTHROMBIN TIME 11.1 SEC (9.6-11.6)
[2020-02-06] MEDS: VANCOMYCIN 1GM+NS 250ML 250 ML IV SCH (15:02)
[2020-02-06] MEDS: FAMOTIDINE/PF 20 MG/2 ML VIAL IV SCH (15:02)
[2020-02-06 15:28] VITALS: BP 130/77
--- NOTE | 2020-02-06 16:43 | NUR ---
CM NOTE/DCP WITH FAMILY NEW ORDER FOR LTAC. PER NURSE, MAGGIE MISHRA DAUGHTER CALLED HIM AND STATES THAT SHE PREFERRED PATIENT TO GO TO SNF IN [place]. MAGGIE CALLED AT [phone]. PER MAGGIE WANTS HER MOTHER TO GO TO [facility] [phone]. I EXPLAINED TO DAUGHTER THAT REASON FOR LTAC ORDER WAS FOR IV ABT THAT ARE REQUIRED FOR MORE THAN 2 WEEKS. PER DAUGHTER, WANTS MOTHER TO GO TO SNF THAT SHE CHOOSES. DR. ONOFRE MADE AWARE. PER MD, PATIENT REQUIRES LTAC DUE TO SKILLED NURSING IV ABT AND HIGH RISK FOR COVID 19 AT SNF. IVAN WEAVER, PRIMARY NURSE MADE AWARE. I WILL CALL DAUGHTER AND EXPLAIN DR. NAIDU RECOMMENDATIONS FOR LTAC.
[2020-02-06] MEDS ORDERED: PHARMACY COMMUNICATION MISC SCH (20:00)
[2020-02-06 20:16] VITALS: BP 158/81
[2020-02-06] MEDS: ATORVASTATIN CALCIUM 20 MG TABLET PO SCH (21:35)
[2020-02-06] MEDS: ACETAMINOPHEN 325 MG TAB PO PRN (21:37)
[2020-02-06 23:32] VITALS: BP 135/68
--- NOTE | 2020-02-07 00:43 | NUR ---
UNSUCCESSFUL PICC LINE ATTEMPT ON LEFT BASILIC VEIN. MULTIPLE MANEUVERS TO TRY TO ADVANCE TO SVC, BUT UNABLE. DUE TO LATE HOUR, WILL TRY AGAIN TOMORROW ON RIGHT ARM PER PTS REQUEST.
[2020-02-07 03:36] VITALS: BP 141/75
[2020-02-07] MEDS: MEROPENEM 1 GM VIAL IVP SCH ×3 (05:54→22:14)
[2020-02-07] MEDS: LEVOTHYROXINE 50 MCG TABLET PO SCH (05:54)
[2020-02-07 06:04] LABS: HEMATOCRIT 30.9 % (36-48); MEAN CORPUSCULAR HEMOGLOBIN 24.7 pg (27.0-33.0); MEAN CORPUSCULAR HGB CONC 31.4 g/dL (32.0-36.0); MEAN CORPUSCULAR VOLUME 78.8 fL (79-99); RED BLOOD CELL COUNT(AUTO) 3.92 MIL/uL (4.00-5.50); RED CELL DISTRIBUTION WIDTH 16.3 % (11.0-15.5); WHITE BLOOD COUNT (AUTO) 8.4 K/uL (4.8-10.8)
[2020-02-07 06:16] LABS: CREATININE 1.2 mg/dL (0.5-1.5); POTASSIUM 3.4 mmol/L (3.5-5.1)
[2020-02-07] MEDS: INSULIN HUMULIN R 100 UNIT/ML 3ML SQ SCH ×4 (06:47→22:26)
[2020-02-07 07:20] VITALS: BP 161/82
[2020-02-07] MEDS: APIXABAN 5 MG TABLET PO SCH ×2 (09:04→22:14)
[2020-02-07] MEDS: AMLODIPINE BESYLATE 5 MG TAB PO SCH (09:04)
[2020-02-07] MEDS: METOPROLOL TARTRATE 25 MG TAB PO SCH ×2 (09:05→22:14)
[2020-02-07] MEDS: ACETAMINOPHEN 325 MG TAB PO PRN (09:15)
[2020-02-07 11:30] VITALS: BP 165/84
--- NOTE | 2020-02-07 11:53 | NUR ---
DR. DE LA O IN ROOM SPEAKING WITH PT.
[2020-02-07] MEDS: VANCOMYCIN 1GM+NS 250ML 250 ML IV SCH (12:01)
[2020-02-07 15:30] VITALS: BP 128/60
--- NOTE | 2020-02-07 16:12 | NUR ---
CM NOTE/FAMILY UNDECIDED SNF VS LTAC MAGGIE DAUGHTER, CALLED, PLACED ON [address] CALL WITH OTHER SISTER YAZ. PER SISTERS, WANT PATIENT TO GO TO [facility]. I CALLED [facility], PER SAPNA, 3 WEEKS OF SKILLED SNF IS OK, 20 DAYS ARE COVERED BY INSURANCE THEN COPAYS START AFTER THAT. THIS RELAYED TO SISTERS OF PATIENT, DID NOT KNOW THAT INFORMATION. I INFORMED SISTERS THAT DR. ONOFRE ORDERED FOR LTAC AND WAS CONCERNED WITH COVID IN SNF IN [facility]. PER SISTERS, [facility] IS COVID FREE. PER SISTERS, THEY WILL TALK OVER WITH FAMILY ABOUT LTAC VS SNF DECISION AND WILL GET BACK TO ME. PRIMARY NURSE, MAY WEAVER, MADE AWARE.
[2020-02-07] MEDS: FAMOTIDINE/PF 20 MG/2 ML VIAL IV SCH (16:17)
[2020-02-07] MEDS: TRAMADOL HCL 50 MG TABLET PO PRN (16:17)
[2020-02-07 19:57] VITALS: BP 181/73
--- NOTE | 2020-02-07 20:10 | NUR ---
PM Assessment Received pt calm, quite, lying in bed, c/o feeling warm, reported no fever, room temp adjusted, routine assessment done, plan of care discuss, pt stated when made aware for a need temporally placement, responded she does not know. Pt current peripheral IV access discontinued aseptically, wit catheter tip intact as PICC line has been placed & reported OK to use.
[2020-02-07] MEDS: ATORVASTATIN CALCIUM 20 MG TABLET PO SCH (22:14)
[2020-02-08] VITALS (7 sets, daily range): BP systolic 134–179; BP diastolic 57–82
[2020-02-08] MEDS: LEVOTHYROXINE 50 MCG TABLET PO SCH (06:18)
[2020-02-08] MEDS: MEROPENEM 1 GM VIAL IVP SCH ×3 (06:18→21:07)
[2020-02-08] MEDS: INSULIN HUMULIN R 100 UNIT/ML 3ML SQ SCH ×4 (06:19→21:11)
[2020-02-08] MEDS: METOPROLOL TARTRATE 25 MG TAB PO SCH ×2 (10:56→21:09)
[2020-02-08] MEDS: APIXABAN 5 MG TABLET PO SCH ×2 (10:57→21:08)
[2020-02-08] MEDS: AMLODIPINE BESYLATE 5 MG TAB PO SCH (10:57)
[2020-02-08] MEDS: TRAMADOL HCL 50 MG TABLET PO PRN (10:58)
[2020-02-08] MEDS: LACTULOSE 20 GM/30 ML UDCUP PO PRN (11:00)
[2020-02-08] MEDS: VANCOMYCIN 1GM+NS 250ML 250 ML IV SCH (12:29)
[2020-02-08] MEDS: ACETAMINOPHEN 325 MG TAB PO PRN (14:36)
[2020-02-08] MEDS: HYDRALAZINE HCL 20 MG/ML VIAL IV PRN (14:37)
[2020-02-08] MEDS: FAMOTIDINE/PF 20 MG/2 ML VIAL IV SCH (15:54)
--- NOTE | 2020-02-08 17:33 | NUR ---
CM NOTE/[facility]ARA CM spoke to [facility] with [facility]. Notified of pending eval. Faxed referral. CM to follow up.
[2020-02-08] MEDS: ATORVASTATIN CALCIUM 20 MG TABLET PO SCH (21:08)
[2020-02-09 03:43] VITALS: BP 164/71
[2020-02-09] MEDS: MEROPENEM 1 GM VIAL IVP SCH ×3 (04:08→20:59)
[2020-02-09 04:31] LABS: HEMATOCRIT 30.5 % (36-48); MEAN CORPUSCULAR HEMOGLOBIN 24.9 pg (27.0-33.0); MEAN CORPUSCULAR HGB CONC 30.8 g/dL (32.0-36.0); MEAN CORPUSCULAR VOLUME 80.7 fL (79-99); RED BLOOD CELL COUNT(AUTO) 3.78 MIL/uL (4.00-5.50); RED CELL DISTRIBUTION WIDTH 16.8 % (11.0-15.5); WHITE BLOOD COUNT (AUTO) 8.8 K/uL (4.8-10.8)
[2020-02-09 04:38] LABS: CREATININE 1.1 mg/dL (0.5-1.5); MAGNESIUM 2.1 mg/dL (1.80-2.40); POTASSIUM 3.9 mmol/L (3.5-5.1)
[2020-02-09] MEDS: LEVOTHYROXINE 50 MCG TABLET PO SCH (06:02)
[2020-02-09] MEDS: INSULIN HUMULIN R 100 UNIT/ML 3ML SQ SCH ×4 (06:05→20:44)
[2020-02-09 07:08] VITALS: BP 152/67
[2020-02-09] MEDS: AMLODIPINE BESYLATE 5 MG TAB PO SCH (08:40)
[2020-02-09] MEDS: APIXABAN 5 MG TABLET PO SCH ×2 (08:40→20:50)
[2020-02-09] MEDS: METOPROLOL TARTRATE 25 MG TAB PO SCH ×2 (08:40→20:50)
[2020-02-09] MEDS: TRAMADOL HCL 50 MG TABLET PO PRN (08:41)
[2020-02-09] MEDS: LACTULOSE 20 GM/30 ML UDCUP PO PRN (08:45)
[2020-02-09 12:00] VITALS: BP 160/74
--- NOTE | 2020-02-09 12:17 | NUR ---
Brittany Spoke lito Hayes this afternoon. Informed her pt currently remains w 1:1. States she is still in the process of evaluating pt, however will not be able to accept unless pt is off 1:1 for at least 24hrs. Discussed w primary nurse, states that he will see how she does today and poss ask Md to dc 1:1.
[2020-02-09] MEDS: VANCOMYCIN 1GM+NS 250ML 250 ML IV SCH ×2 (13:00→15:23)
[2020-02-09] MEDS: FAMOTIDINE/PF 20 MG/2 ML VIAL IV SCH (15:23)
[2020-02-09 16:00] VITALS: BP 160/70
--- NOTE | 2020-02-09 16:07 | NUR ---
DR. MCNULTY IN ROOM SPEAKING WITH PT. RE:PLAN OF CARE, INCLUDING FLUID RESTRICTION; PT. VERBALIZED UNDERSTANDING.
[2020-02-09 20:00] VITALS: BP 143/63
[2020-02-09] MEDS: ATORVASTATIN CALCIUM 20 MG TABLET PO SCH (20:50)
[2020-02-09 23:28] VITALS: BP 161/70
[2020-02-10 03:15] VITALS: BP 143/62
[2020-02-10 04:15] LABS: MEAN CORPUSCULAR HEMOGLOBIN 25.2 pg (27.0-33.0); MEAN CORPUSCULAR HGB CONC 31.4 g/dL (32.0-36.0); MEAN CORPUSCULAR VOLUME 80.3 fL (79-99); PLATELET COUNT (AUTO) 150 K/uL (130-400); RED BLOOD CELL COUNT(AUTO) 3.61 MIL/uL (4.00-5.50); RED CELL DISTRIBUTION WIDTH 16.5 % (11.0-15.5); WHITE BLOOD COUNT (AUTO) 9.3 K/uL (4.8-10.8)
[2020-02-10] MEDS: MEROPENEM 1 GM VIAL IVP SCH ×3 (04:27→22:11)
[2020-02-10 04:28] LABS: CREATININE 0.9 mg/dL (0.5-1.5); POTASSIUM 3.7 mmol/L (3.5-5.1)
[2020-02-10 04:38] LABS: BAND NEUTROPHILS % (MANUAL) 7 % (0-2); LYMPHOCYTES % (MANUAL) 24 % (22-44); MAN.DIFF COMMENT-IMPRESSION MANUAL DIFFERENTIAL; MONOCYTES % (MANUAL) 3 % (2-9); PLATELET MORPHOLOGY COMMENT ADEQUATE; SEGMENTED NEUTROPHILS % 66 % (40-70)
[2020-02-10] MEDS: LEVOTHYROXINE 50 MCG TABLET PO SCH (06:30)
[2020-02-10] MEDS: INSULIN HUMULIN R 100 UNIT/ML 3ML SQ SCH ×4 (06:33→22:22)
[2020-02-10 08:00] VITALS: BP 179/77
[2020-02-10] MEDS: APIXABAN 5 MG TABLET PO SCH ×2 (08:47→22:12)
[2020-02-10] MEDS: AMLODIPINE BESYLATE 5 MG TAB PO SCH (08:47)
[2020-02-10] MEDS: METOPROLOL TARTRATE 25 MG TAB PO SCH ×2 (08:47→22:12)
[2020-02-10 12:00] VITALS: BP 148/73
[2020-02-10] MEDS: VANCOMYCIN 1GM+NS 250ML 250 ML IV SCH (13:14)
[2020-02-10 16:00] VITALS: BP 166/70
[2020-02-10] MEDS: FAMOTIDINE/PF 20 MG/2 ML VIAL IV SCH (17:30)
[2020-02-10 20:32] VITALS: BP 143/65
[2020-02-10] MEDS: ATORVASTATIN CALCIUM 20 MG TABLET PO SCH (22:12)
[2020-02-11] VITALS: BP 157/59
[2020-02-11 03:40] LABS: HEMATOCRIT 29.1 % (36-48); MEAN CORPUSCULAR HEMOGLOBIN 24.9 pg (27.0-33.0); MEAN CORPUSCULAR HGB CONC 31.3 g/dL (32.0-36.0); MEAN CORPUSCULAR VOLUME 79.7 fL (79-99); RED BLOOD CELL COUNT(AUTO) 3.65 MIL/uL (4.00-5.50); RED CELL DISTRIBUTION WIDTH 16.2 % (11.0-15.5); WHITE BLOOD COUNT (AUTO) 7.5 K/uL (4.8-10.8)
[2020-02-11 03:58] LABS: CREATININE 0.8 mg/dL (0.5-1.5); POTASSIUM 3.2 mmol/L (3.5-5.1)
[2020-02-11 03:59] VITALS: BP 133/78
[2020-02-11] MEDS: LEVOTHYROXINE 50 MCG TABLET PO SCH (06:13)
[2020-02-11] MEDS: MEROPENEM 1 GM VIAL IVP SCH ×2 (06:13→12:30)
[2020-02-11] MEDS: INSULIN HUMULIN R 100 UNIT/ML 3ML SQ SCH ×3 (06:13→17:07)
[2020-02-11] MEDS: POTASSIUM CHLORIDE 20 MEQ ERTAB PO PRN ×2 (07:02→09:37)
--- NOTE | 2020-02-11 08:00 | NUR ---
AM ASSESSMENT.AAOX 3.
--- NOTE | 2020-02-11 08:00 | NUR ---
AM ASSESSMENT, AWAKE, NO C/O. STILL WITH SOME EDEMA TO UPPER LIMBS, PLUS BRUISING NOTED TO RT. ARM.
[2020-02-11 08:17] VITALS: BP 144/58
[2020-02-11] MEDS: APIXABAN 5 MG TABLET PO SCH (09:35)
[2020-02-11] MEDS: METOPROLOL TARTRATE 25 MG TAB PO SCH (09:36)
[2020-02-11] MEDS: AMLODIPINE BESYLATE 5 MG TAB PO SCH (09:36)
[2020-02-11 11:47] VITALS: BP 173/73
[2020-02-11] MEDS: VANCOMYCIN 1GM+NS 250ML 250 ML IV SCH (11:58)
--- NOTE | 2020-02-11 15:31 | NUR ---
RD FOLLOW UP Pt tolerating Heart healthy, 75gm CC diet order with no report of GI distress, Fair PO intake at 75%. LBM 02/09/20. BG 150. Antibiotics in place. Pending transfer to [facility] as per EMR. Recommend to continue Heart healthy 75gm CCD. RD to continue to monitor. Please notify as additional nutrition concerns arise. Thank you. Addendum: 02/11/20 at [address] Amended: Links added.
[2020-02-11] MEDS: FAMOTIDINE/PF 20 MG/2 ML VIAL IV SCH (15:51)
[2020-02-11] MEDS: TRAMADOL HCL 50 MG TABLET PO PRN (15:51)
--- NOTE | 2020-02-11 16:24 | NUR ---
CM NIMCO/PERLITA APPROVED PER ABILIO BOWLES [facility], PATIENT APPROVED FOR LTAC. DR CASTILLO MADE AWARE, OK TO DC TO LTAC. PRIMARY NURSE, DWIGHT WEAVER, MADE AWARE.
[2020-02-11 17:01] VITALS: BP 170/68
--- NOTE | 2020-02-11 17:16 | NUR ---
UNABLE TO GIVE REPORT, NURSE BUSY IN A PT. ROOM AND WILL CALL ME BACK
--- NOTE | 2020-02-11 19:59 | NUR ---
REPORT GIVEN TO JAVY RAMIREZ RN. EMS NOTIFIED OF TRANSFER.
--- NOTE | 2020-02-11 20:58 | NUR ---
EMS NOTIFIED EARLIER OF TRANSFER, WILL SEND AMBULANCE, NO TIME FRAME GIVEN.
--- NOTE | 2020-02-11 21:30 | NUR ---
DISCHARGE EMS HERE TO TRANSPORT PATIENT TO [facility]NOTE 3[facility]. PATIENT TRANSPORTED VIA STRETCHER WITH ALL HER BELONGINGS AND PAPERWORK AT HER SIDE.
[2020-02-13] MEDS ORDERED: APIXABAN 5 MG TABLET PO SCH (09:00)
== END 2020-02-11 21:25 | DRG 871 ==
LOC: EDH 14:20 → EDHIP 19:24 → 4BH 22:30 → 4AH 01-30 11:23 → 2AH 02-01 15:56 → 4BH 02-02 16:00 → 4CH 02-10 09:27
PROVIDERS: ADMIT Internal Medicine; ATTEND Internal Medicine
PROC: 02HV33Z Insertion of Infusion Device into Superior Vena Cava, Percutaneous Approach (ICD-10-PCS; principal; 2020-01-29)
DX: A41.9 Sepsis, unspecified organism (principal); G93.41 Metabolic encephalopathy; E87.1 Hypo-osmolality and hyponatremia; N39.0 Urinary tract infection, site not specified; E44.0 Moderate protein-calorie malnutrition; I82.401 Acute embolism and thrombosis of unspecified deep veins of right lower extremity; L03.90 Cellulitis, unspecified; N17.9 Acute kidney failure, unspecified; Z16.24 Resistance to multiple antibiotics; B96.20 Unspecified Escherichia coli [E. coli] as the cause of diseases classified elsewhere; E11.22 Type 2 diabetes mellitus with diabetic chronic kidney disease; N18.9 Chronic kidney disease, unspecified; D64.9 Anemia, unspecified; D69.6 Thrombocytopenia, unspecified; E03.9 Hypothyroidism, unspecified; Z68.37 Body mass index [BMI] 37.0-37.9, adult; E66.9 Obesity, unspecified; E87.6 Hypokalemia; F41.9 Anxiety disorder, unspecified; G89.29 Other chronic pain; I12.9 Hypertensive chronic kidney disease with stage 1 through stage 4 chronic kidney disease, or unspecified chronic kidney disease; I25.10 Atherosclerotic heart disease of native coronary artery without angina pectoris; J44.9 Chronic obstructive pulmonary disease, unspecified; M19.90 Unspecified osteoarthritis, unspecified site; R63.1 Polydipsia; T38.0X5A Adverse effect of glucocorticoids and synthetic analogues, initial encounter; Y92.89 Other specified places as the place of occurrence of the external cause; Z20.828 Contact with and (suspected) exposure to other viral communicable diseases; Z74.01 Bed confinement status; Z79.01 Long term (current) use of anticoagulants; Z80.1 Family history of malignant neoplasm of trachea, bronchus and lung; Z80.49 Family history of malignant neoplasm of other genital organs; Z82.0 Family history of epilepsy and other diseases of the nervous system; Z82.3 Family history of stroke; Z82.49 Family history of ischemic heart disease and other diseases of the circulatory system; Z82.5 Family history of asthma and other chronic lower respiratory diseases; Z83.3 Family history of diabetes mellitus; Z90.710 Acquired absence of both cervix and uterus; Z95.0 Presence of cardiac pacemaker; Z90.49 Acquired absence of other specified parts of digestive tract
CPT/HCPCS: 36415; 70450; 71045; 76700; 78582; 80048; 80053; 80202; 80305; 81001; 82103; 82140; 82550; 82570; 82948; 82977; 83516; 83540; 83550; 83605; 83735; 83874; 83930; 83935; 84100; 84133; 84145; 84300; 84443; 84484; 84550; 85025; 85027; 85378; 85610; 85730; 86038; 86255; 86704; 86705; 86706; 86708; 86709; 87040; 87077; 87088; 87186; 87340; 87520; 87635; 93005; 93970; 93971; 97039; A4344; A4351; A9540; A9558; C1894; G0378; J0290; J0360; J0696; J1100; J1650; J1815; J2060; J2185; J2405; J3370; J3490; J7030; J7120

== ENCOUNTER 2020-02-18 11:32 | Inpatient (IN) | payer MEDICARE ==
[~2020-02-18] VITALS: Ht 152.4 cm; Wt 80.9 kg
[~2020-02-18 11:32] MED LIST changes: -CEFD300C3 PO; +INSU100I24 SQ; +INSU100I3 SQ; -LINA145C PO; -LISI-613 PO; -MECL-160 PO; -SUCR1TAB2 PO; +TRAM50TA4 PO
[2020-02-18 12:15] LABS: BASOPHILS % (AUTO) 0.1 % (0.0-5.0); EOSINOPHILS % (AUTO) 6.5 % (0.0-8.0); LYMPHOCYTES % (AUTO) 7.8 % (21.0-51.0); MEAN CORPUSCULAR HEMOGLOBIN 25.3 pg (27.0-33.0); MEAN CORPUSCULAR HGB CONC 32.1 g/dL (32.0-36.0); MEAN CORPUSCULAR VOLUME 78.7 fL (79-99); MONOCYTES % (AUTO) 2.4 % (3.0-13.0); NEUTROPHILS % (AUTO) 81.3 % (40.0-77.0); PLATELET COUNT (AUTO) 135 K/uL (130-400); RED BLOOD CELL COUNT(AUTO) 3.56 MIL/uL (4.00-5.50); RED CELL DISTRIBUTION WIDTH 16.6 % (11.0-15.5); WHITE BLOOD COUNT (AUTO) 10.9 K/uL (4.8-10.8)
[2020-02-18 12:29] LABS: INR 1.1 (0.85-1.15); PARTIAL THROMBOPLASTIN TIME 30.2 SEC (26.3-35.5); PROTHROMBIN TIME 11.8 SEC (9.6-11.6)
[2020-02-18] MEDS ORDERED: ACETAMINOPHEN 325 MG TAB ONE (12:37)
[2020-02-18 13:05] LABS: CARBON DIOXIDE 29 mmol/L (21-32); CHLORIDE 98 mmol/L (101-111); CREATININE 1.1 mg/dL (0.5-1.5); GLOMERULAR FILTR. RATE CALC 51 mL/min (>60); GLUCOSE,RANDOM 158 mg/dL (70-105); POTASSIUM 3.3 mmol/L (3.5-5.1); SODIUM SERUM 136 mmol/L (136-145); UREA NITROGEN, BLOOD 24 mg/dL (7-18)
[2020-02-18 13:22] LABS: ALANINE AMINOTRANSFERASE 130 U/L (12-78); ALBUMIN 1.8 g/dL (3.5-5.0); ASPARTATE AMINOTRANSFERASE 224 U/L (10-37); BILIRUBIN,TOTAL 0.7 mg/dL (0.2-1.0); CREATINE KINASE, TOTAL 25 U/L (21-232); MYOGLOBIN 77 ng/mL (10-92); TOTAL PROTEIN, SERUM 5.7 g/dL (6.0-8.3); TROPONIN I < 0.04 ng/mL (0.00-0.06)
[2020-02-18 13:46] LABS: ABG BASE EXCESS 4.4 mmol/L (-2.0-3.0); ABG HCO3 26.3 mmol/L (21.0-28.0); ABG PCO2 32 mmHg (32-45)
[2020-02-18 14:16] LABS: APPEARANCE,URINE CLOUDY (CLEAR); BILIRUBIN,URINE NEGATIVE (NEGATIVE); COLOR,URINE YELLOW (YELLOW); GLUCOSE, URINE (UA) NEGATIVE (NEGATIVE); KETONES,URINE NEGATIVE (NEGATIVE); LEUKOCYTE ESTERASE ,URINE NEGATIVE (NEGATIVE); NITRATE,URINE NEGATIVE (NEGATIVE); OCCULT BLOOD,URINE SMALL (NEGATIVE); PROTEIN,URINE 100 mg/dL (NEGATIVE)
[2020-02-18 14:33] LABS: SQUAMOUS EPITHELIAL CELL,UR Few /HPF (0-2)
[2020-02-18 14:34] LABS: AMORPHOUS SEDIMENT,UR Moderate /LPF (None Seen); BACTERIA,URINE Few /HPF (None Seen); MUCUS,URINE Rare LPF (None Seen)
[2020-02-18] MEDS ORDERED: SODIUM CHLORIDE 0.9% 10 ML VIAL IVP PRN (15:30)
[2020-02-18] MEDS: DEXAMETHASONE SOD PHOSPHATE 4 MG/ML 1ML VIAL IVP SCH (15:30)
[2020-02-18] MEDS ORDERED: DEXAMETHASONE SOD PHOSPHATE 10MG/ML 1ML VIAL ONE ×2 (16:31→20:13)
[2020-02-18] MEDS ORDERED: ENOXAPARIN SODIUM 30 MG/0.3 ML SQ ONE ×2 (16:31→20:13)
[2020-02-18] MEDS: CEFTRIAXONE SODIUM 1 GM IVP SCH (16:45)
[2020-02-18] MEDS: ALBUTEROL INHALER 90MCG/INH IH SCH ×2 (16:45→20:45)
[2020-02-18] MEDS: AZITHROMYCIN 500MG+NS 250ML 250 ML IV SCH (16:45)
[2020-02-18] MEDS ORDERED: ACETAMINOPHEN 325 MG TAB PO PRN ×2 (17:15)
[2020-02-18] MEDS ORDERED: LACTULOSE 20 GM/30 ML UDCUP PO PRN (17:15)
[2020-02-18] MEDS ORDERED: ONDANSETRON HCL 4 MG/2 ML VIAL IV PRN (17:15)
[2020-02-18] MEDS ORDERED: ERGOCALCIFEROL (VITAMIN D2) 50,000 UNIT CAPSULE PO ONE (17:45)
[2020-02-18] MEDS ORDERED: ERGOCALCIFEROL (VITAMIN D2) 50,000 UNIT CAPSULE ONE (18:59)
[2020-02-18] MEDS ORDERED: IOHEXOL-350 75 ML VIAL IV ONE (19:19)
[2020-02-18] MEDS ORDERED: AZITHROMYCIN 500MG+NS 250ML 250 ML IV ONE (20:13)
[2020-02-18] MEDS ORDERED: CEFTRIAXONE SODIUM 1 GM ONE (20:13)
[2020-02-18] MEDS ORDERED: SODIUM CHLORIDE 0.9% 50 ML IV ONE (20:14)
[2020-02-18] MEDS: INSULIN HUMULIN R 100 UNIT/ML 3ML SQ SCH (21:00)
[2020-02-18] MEDS: ENOXAPARIN SODIUM 30 MG/0.3 ML SQ SCH (21:00)
[2020-02-19] MEDS: ALBUTEROL INHALER 90MCG/INH IH SCH ×6 (00:45→20:45)
[2020-02-19] MEDS: DEXAMETHASONE SOD PHOSPHATE 4 MG/ML 1ML VIAL IVP SCH ×2 (03:30→15:30)
[2020-02-19] MEDS ORDERED: ACETAMINOPHEN 325 MG TAB ONE ×2 (03:34→11:03)
[2020-02-19 04:01] LABS: BASOPHILS % (AUTO) 0.1 % (0.0-5.0); EOSINOPHILS % (AUTO) 0.1 % (0.0-8.0); HEMATOCRIT 29.7 % (36-48); LYMPHOCYTES % (AUTO) 14.4 % (21.0-51.0); MEAN CORPUSCULAR HEMOGLOBIN 24.8 pg (27.0-33.0); MEAN CORPUSCULAR HGB CONC 31.6 g/dL (32.0-36.0); MEAN CORPUSCULAR VOLUME 78.4 fL (79-99); MONOCYTES % (AUTO) 1.5 % (3.0-13.0); NEUTROPHILS % (AUTO) 83.5 % (40.0-77.0); PLATELET COUNT (AUTO) 143 K/uL (130-400); RED BLOOD CELL COUNT(AUTO) 3.79 MIL/uL (4.00-5.50); RED CELL DISTRIBUTION WIDTH 16.7 % (11.0-15.5); WHITE BLOOD COUNT (AUTO) 9.4 K/uL (4.8-10.8)
[2020-02-19 04:15] LABS: CREATININE 0.9 mg/dL (0.5-1.5); POTASSIUM 3.5 mmol/L (3.5-5.1)
[2020-02-19 04:22] LABS: CRP QUANTITATIVE 190.2 mg/L (0.00-9.0)
[2020-02-19] MEDS: INSULIN HUMULIN R 100 UNIT/ML 3ML SQ SCH ×4 (07:30→21:00)
[2020-02-19] MEDS ORDERED: ENOXAPARIN SODIUM 30 MG/0.3 ML SQ ONE ×2 (08:15→22:27)
[2020-02-19] MEDS ORDERED: DEXAMETHASONE SOD PHOSPHATE 4 MG/ML 1ML VIAL ONE (08:15)
[2020-02-19] MEDS ORDERED: ZINC SULFATE 220 CAPSULE ONE (08:15)
[2020-02-19] MEDS ORDERED: ASCORBIC ACID 500 MG TAB ONE (08:15)
[2020-02-19] MEDS ORDERED: ALBUTEROL INHALER 90MCG/INH IH ONE (08:23)
[2020-02-19] MEDS: ASCORBIC ACID 500 MG TAB PO SCH (09:00)
[2020-02-19] MEDS: ENOXAPARIN SODIUM 30 MG/0.3 ML SQ SCH ×2 (09:00→21:00)
[2020-02-19] MEDS: PANTOPRAZOLE SODIUM 40 MG TABLET.DR PO SCH (09:00)
[2020-02-19] MEDS: ZINC SULFATE 220 CAPSULE PO SCH (09:00)
--- NOTE | 2020-02-19 10:10 | NUR ---
SPOKE TO DAUGHTER ON PHONE. HISTORY FOLLOW. PT IS RECENT , ADMITT[facility], SENT TO [facility] FOR ABOUT A WEEK, TESTED FOR COVID, POSITIVE, NOW BACK IN ER FOR PLASMA TREATMENT. GOAL IS TO RETURN TO [facility] AT [facility]CHARGE FROM [facility] TO CONTINUE HER ABX FOR UTI/SEPSIS, AND THEN RETURN TO HOME WITH HELP FROM LOCAL DAUGHTERS. FACE SHEET UPDATED Addendum: 02/19/20 at 1532 by JACOB WALLACE RN CM Amended: Links added.
[2020-02-19] MEDS ORDERED: INSULIN HUMULIN R 100 UNIT/ML 3ML ONE ×3 (10:27→22:28)
[2020-02-19] MEDS ORDERED: LACTULOSE 20 GM/30 ML UDCUP ONE (15:21)
[2020-02-19] MEDS: AZITHROMYCIN 500MG+NS 250ML 250 ML IV SCH (16:45)
[2020-02-19] MEDS: CEFTRIAXONE SODIUM 1 GM IVP SCH (16:45)
[2020-02-19] MEDS ORDERED: DEXAMETHASONE SOD PHOSPHATE 10MG/ML 1ML VIAL ONE (22:26)
[2020-02-19] MEDS ORDERED: AZITHROMYCIN 500MG+NS 250ML 250 ML IV ONE (22:27)
[2020-02-20] MEDS: ALBUTEROL INHALER 90MCG/INH IH SCH ×6 (00:45→20:45)
[2020-02-20 03:23] LABS: ABG BASE EXCESS 5.3 mmol/L (-2.0-3.0); ABG HCO3 26.3 mmol/L (21.0-28.0); ABG PCO2 29 mmHg (32-45)
[2020-02-20] MEDS: DEXAMETHASONE SOD PHOSPHATE 4 MG/ML 1ML VIAL IVP SCH ×2 (03:30→15:30)
[2020-02-20 04:05] LABS: BASOPHILS % (AUTO) 0.1 % (0.0-5.0); HEMATOCRIT 27.5 % (36-48); LYMPHOCYTES % (AUTO) 8.4 % (21.0-51.0); MEAN CORPUSCULAR VOLUME 78.1 fL (79-99); MONOCYTES % (AUTO) 3.2 % (3.0-13.0); NEUTROPHILS % (AUTO) 87.3 % (40.0-77.0); PLATELET COUNT (AUTO) 180 K/uL (130-400); RED BLOOD CELL COUNT(AUTO) 3.52 MIL/uL (4.00-5.50); RED CELL DISTRIBUTION WIDTH 16.8 % (11.0-15.5); WHITE BLOOD COUNT (AUTO) 11.7 K/uL (4.8-10.8)
[2020-02-20 04:34] LABS: ALBUMIN 1.8 g/dL (3.5-5.0); BILIRUBIN,TOTAL 0.6 mg/dL (0.2-1.0); CRP QUANTITATIVE 107.4 mg/L (0.00-9.0); POTASSIUM 3.3 mmol/L (3.5-5.1); TOTAL PROTEIN, SERUM 6.2 g/dL (6.0-8.3)
[2020-02-20] MEDS: INSULIN HUMULIN R 100 UNIT/ML 3ML SQ SCH ×4 (07:30→21:00)
[2020-02-20] MEDS ORDERED: ASCORBIC ACID 500 MG TAB ONE (07:33)
[2020-02-20] MEDS ORDERED: DEXAMETHASONE SOD PHOSPHATE 4 MG/ML 1ML VIAL ONE ×2 (07:33→21:24)
[2020-02-20] MEDS ORDERED: ENOXAPARIN SODIUM 40 MG/0.4 ML SYRINGE SQ ONE (07:34)
[2020-02-20] MEDS ORDERED: ZINC SULFATE 220 CAPSULE ONE (07:34)
[2020-02-20] MEDS ORDERED: CEFTRIAXONE SODIUM 1 GM ONE (07:35)
[2020-02-20] MEDS: ZINC SULFATE 220 CAPSULE PO SCH (09:00)
[2020-02-20] MEDS: PANTOPRAZOLE SODIUM 40 MG TABLET.DR PO SCH (09:00)
[2020-02-20] MEDS: INSULIN GLARGINE 100 UNITS/ML 10 ML VIAL SQ SCH (09:00)
[2020-02-20] MEDS: ENOXAPARIN SODIUM 30 MG/0.3 ML SQ SCH ×2 (09:00→21:00)
[2020-02-20] MEDS: ASCORBIC ACID 500 MG TAB PO SCH (09:00)
[2020-02-20] MEDS ORDERED: LORAZEPAM 1 MG TABLET ONE (11:26)
[2020-02-20] MEDS ORDERED: INSULIN HUMULIN R 100 UNIT/ML 3ML ONE ×2 (12:20→18:53)
[2020-02-20] MEDS ORDERED: LIDOCAINE HCL-MPF 1% 2ML VIAL IJ PRN (14:30)
[2020-02-20] MEDS ORDERED: POTASSIUM CHLORIDE 10% ELIXIR 20 MEQ/15 ML UDCUP PO PRN (14:30)
[2020-02-20] MEDS ORDERED: POTASSIUM CHLORIDE 20 MEQ ERTAB PO PRN (14:30)
[2020-02-20] MEDS ORDERED: POTASSIUM CHLORIDE 10% ELIXIR 20 MEQ/15 ML UDCUP ONE ×2 (16:12→21:24)
[2020-02-20] MEDS: AZITHROMYCIN 500MG+NS 250ML 250 ML IV SCH (16:45)
[2020-02-20] MEDS: CEFTRIAXONE SODIUM 1 GM IVP SCH (16:45)
[2020-02-20] MEDS ORDERED: AZITHROMYCIN 500MG+NS 250ML 250 ML IV ONE (21:24)
[2020-02-20 22:55] VITALS: BP 168/81
[2020-02-21] MEDS: ALBUTEROL INHALER 90MCG/INH IH SCH ×6 (00:45→20:45)
[2020-02-21 04:00] VITALS: BP 149/81
[2020-02-21] MEDS: DEXAMETHASONE SOD PHOSPHATE 4 MG/ML 1ML VIAL IVP SCH ×2 (04:42→14:57)
[2020-02-21] MEDS: INSULIN HUMULIN R 100 UNIT/ML 3ML SQ SCH ×4 (06:17→21:35)
[2020-02-21 07:06] LABS: BASOPHILS % (AUTO) 0.1 % (0.0-5.0); HEMATOCRIT 29.8 % (36-48); LYMPHOCYTES % (AUTO) 5.6 % (21.0-51.0); MEAN CORPUSCULAR HEMOGLOBIN 24.5 pg (27.0-33.0); MEAN CORPUSCULAR HGB CONC 30.9 g/dL (32.0-36.0); MEAN CORPUSCULAR VOLUME 79.5 fL (79-99); MONOCYTES % (AUTO) 4.9 % (3.0-13.0); NEUTROPHILS % (AUTO) 87.5 % (40.0-77.0); PLATELET COUNT (AUTO) 182 K/uL (130-400); RED BLOOD CELL COUNT(AUTO) 3.75 MIL/uL (4.00-5.50); WHITE BLOOD COUNT (AUTO) 12.3 K/uL (4.8-10.8)
[2020-02-21 08:00] VITALS: BP 142/54
[2020-02-21 08:18] LABS: ALBUMIN 1.9 g/dL (3.5-5.0); BILIRUBIN,TOTAL 0.8 mg/dL (0.2-1.0); CREATININE 1.2 mg/dL (0.5-1.5); POTASSIUM 4.3 mmol/L (3.5-5.1); TOTAL PROTEIN, SERUM 6.1 g/dL (6.0-8.3)
[2020-02-21] MEDS: PANTOPRAZOLE SODIUM 40 MG TABLET.DR PO SCH (09:00)
[2020-02-21] MEDS: ZINC SULFATE 220 CAPSULE PO SCH (09:00)
[2020-02-21] MEDS: INSULIN GLARGINE 100 UNITS/ML 10 ML VIAL SQ SCH (09:00)
--- NOTE | 2020-02-21 10:38 | NUR ---
Pt AA&O x1. Continuous pulling off NRB and reorientation. Sating 89% turned pt to right side. Will continue to monitor.
[2020-02-21 11:00] VITALS: BP 143/75
[2020-02-21 11:51] LABS: ABG BASE EXCESS 4.7 mmol/L (-2.0-3.0); ABG HCO3 27.4 mmol/L (21.0-28.0); ABG OXYGEN SATURATION 93.6 % (95.0-99.0); ABG PCO2 34 mmHg (32-45)
[2020-02-21] MEDS ORDERED: ALTEPLASE 2 MG/VIAL IVCATH SCH (12:15)
--- NOTE | 2020-02-21 12:52 | NUR ---
RD NOTIFICATION - TUBE FEEDING RECOMMENDATIONS Recommend continuous tube feeding, Vital High Protein initiated at 15mls/hr to goal of 30mls/hr to provide 720kcal, 63gm protein, 602 free H2O Recommend Flushes 100mls Q6hrs. Recommendations faxed to 2nd Floor Pod D (ext [phone]). RN notified. NUTRITION NOTE: Pt admitted with Respiratory Failure. NGT placement. COVID PNA. WBC 12.3, GFR 46, BG 282. RD to continue to monitor. Please notify as additional nutrition concerns arise. Thank you.
[2020-02-21] MEDS: ASCORBIC ACID 500 MG TAB PO SCH (14:40)
[2020-02-21] MEDS: ENOXAPARIN SODIUM 30 MG/0.3 ML SQ SCH ×2 (14:40→21:34)
--- NOTE | 2020-02-21 15:36 | NUR ---
Pt confused. Nurse sitting at window watching pt. Continue to pull of NRB mask. Reorient pt and give ice chips. Laying on right side oxygen sat 95% Addendum: 02/21/20 at 1537 by ISAIAS COLE RN RN Amended: Links added.
[2020-02-21] MEDS: CEFTRIAXONE SODIUM 1 GM IVP SCH (15:55)
[2020-02-21] MEDS: AZITHROMYCIN 500MG+NS 250ML 250 ML IV SCH (15:55)
[2020-02-21 16:00] VITALS: BP 142/77
[2020-02-21] MEDS ORDERED: PHENOL 177 ML BOTTLE PO PRN (17:15)
[2020-02-21] MEDS ORDERED: ALPRAZOLAM 0.25 MG TABLET ONE (19:47)
[2020-02-21 20:00] VITALS: BP 140/80
[2020-02-21] MEDS ORDERED: ALPRAZOLAM 0.25 MG TABLET PO SCH (20:20)
--- NOTE | 2020-02-21 23:31 | NUR ---
Pt. noted with HR change via monitor currently in ST spoke with campus monitor bradycardic around 2130 and currently HR running 125 on monitor. URMILA Barnhart notified via oncall page no new orders given instructed to monitor HR for any additional changes. Will continue to monitor.
[2020-02-22] VITALS (7 sets, daily range): BP systolic 121–185; BP diastolic 54–96
[2020-02-22] MEDS: ALBUTEROL INHALER 90MCG/INH IH SCH ×6 (00:45→21:34)
[2020-02-22] MEDS: DEXAMETHASONE SOD PHOSPHATE 4 MG/ML 1ML VIAL IVP SCH ×2 (05:09→15:46)
[2020-02-22 06:17] LABS: BASOPHILS % (AUTO) 0.2 % (0.0-5.0); HEMATOCRIT 30.2 % (36-48); LYMPHOCYTES % (AUTO) 7.2 % (21.0-51.0); MEAN CORPUSCULAR HEMOGLOBIN 24.5 pg (27.0-33.0); MEAN CORPUSCULAR HGB CONC 30.8 g/dL (32.0-36.0); MEAN CORPUSCULAR VOLUME 79.5 fL (79-99); MONOCYTES % (AUTO) 4.1 % (3.0-13.0); NEUTROPHILS % (AUTO) 87.3 % (40.0-77.0); PLATELET COUNT (AUTO) 184 K/uL (130-400); RED CELL DISTRIBUTION WIDTH 17.1 % (11.0-15.5); WHITE BLOOD COUNT (AUTO) 14.9 K/uL (4.8-10.8)
[2020-02-22] MEDS: INSULIN HUMULIN R 100 UNIT/ML 3ML SQ SCH ×3 (06:19→16:47)
[2020-02-22 06:54] LABS: ALBUMIN 1.9 g/dL (3.5-5.0); BILIRUBIN,TOTAL 0.6 mg/dL (0.2-1.0); POTASSIUM 4.1 mmol/L (3.5-5.1); TOTAL PROTEIN, SERUM 6.1 g/dL (6.0-8.3)
--- NOTE | 2020-02-22 07:44 | NUR ---
Pt HR 101 goes up as high as 131 and low as 89. Call [facility] gave order for stat EKG.
[2020-02-22] MEDS ORDERED: AMIODARONE HCL 900 MG in DEXTROSE 5%-WATER 500 ML IV SCH (08:45)
[2020-02-22] MEDS ORDERED: AMIODARONE HCL 360 MG in DEXTROSE 5%-WATER 200 ML IV SCH (08:45)
[2020-02-22] MEDS ORDERED: AMIODARONE HCL 450 MG in DEXTROSE 5%-WATER 250 ML IV SCH (08:45)
[2020-02-22] MEDS ORDERED: AMIODARONE HCL 150 MG in DEXTROSE 5%-WATER 100 ML IV SCH (08:45)
--- NOTE | 2020-02-22 08:45 | NUR ---
Called [facility] EKG results new onset afib with rvr. Ordered Amiodarone protocol and consult with cardiology. Called consult to Humphrey Esquivel MD answering service.
[2020-02-22] MEDS ORDERED: METOPROLOL TARTRATE 25 MG TAB PO STA (08:59)
--- NOTE | 2020-02-22 09:01 | NUR ---
Return call from Jese Molina biomedical service engineer. Hold cardizem and give metoprolol 25mg once now then BID.
[2020-02-22] MEDS: ZINC SULFATE 220 CAPSULE PO SCH (10:14)
[2020-02-22] MEDS: ASCORBIC ACID 500 MG TAB PO SCH (10:14)
[2020-02-22] MEDS: PANTOPRAZOLE SODIUM 40 MG TABLET.DR PO SCH (10:14)
[2020-02-22] MEDS: METOPROLOL TARTRATE 25 MG TAB PO SCH ×2 (10:14→21:37)
[2020-02-22] MEDS: ENOXAPARIN SODIUM 30 MG/0.3 ML SQ SCH (10:15)
[2020-02-22] MEDS: INSULIN GLARGINE 100 UNITS/ML 10 ML VIAL SQ SCH ×2 (10:48→21:35)
[2020-02-22] MEDS: AZITHROMYCIN 500MG+NS 250ML 250 ML IV SCH (16:47)
[2020-02-22] MEDS: CEFTRIAXONE SODIUM 1 GM IVP SCH (16:47)
[2020-02-22] MEDS ORDERED: ENOXAPARIN SODIUM 1 MG/KG SQ SCH (21:00)
[2020-02-22] MEDS: ENOXAPARIN SODIUM 80 MG/0.8 ML SQ SCH (21:34)
[2020-02-22] MEDS: INSULIN LISPRO 100 UNIT/ML 3ML SQ SCH (21:36)
[2020-02-23] MEDS: ALBUTEROL INHALER 90MCG/INH IH SCH ×6 (00:55→20:51)
[2020-02-23 03:55] VITALS: BP 156/84
[2020-02-23] MEDS: DEXAMETHASONE SOD PHOSPHATE 4 MG/ML 1ML VIAL IVP SCH (04:08)
[2020-02-23] MEDS: INSULIN LISPRO 100 UNIT/ML 3ML SQ SCH ×7 (06:52→21:00)
--- NOTE | 2020-02-23 06:58 | NUR ---
AM labs attempted by phlebotomy X 2 patient refused withdraws arm pulls away and swats at staff. Redirection attempts by this nurse unsucessful explained to pt. reason for blood draw pt pulled away and screamed no. Unable to collect labs this am will notify oncoming nurse.
[2020-02-23 08:00] VITALS: BP 177/84
[2020-02-23] MEDS: PANTOPRAZOLE SODIUM 40 MG TABLET.DR PO SCH (09:13)
[2020-02-23] MEDS: ENOXAPARIN SODIUM 80 MG/0.8 ML SQ SCH (09:13)
[2020-02-23] MEDS: METOPROLOL TARTRATE 25 MG TAB PO SCH ×3 (09:14→21:00)
[2020-02-23] MEDS: ZINC SULFATE 220 CAPSULE PO SCH (09:14)
[2020-02-23] MEDS: ASCORBIC ACID 500 MG TAB PO SCH (09:14)
[2020-02-23] MEDS ORDERED: LORAZEPAM 0.5 MG TABLET PO PRN (10:00)
[2020-02-23] MEDS: INSULIN GLARGINE 100 UNITS/ML 10 ML VIAL SQ SCH ×2 (10:00→21:37)
[2020-02-23] MEDS ORDERED: FUROSEMIDE 10 MG/ML 4ML VIAL IV SCH (10:15)
[2020-02-23 15:30] LABS: ALBUMIN 2.3 g/dL (3.5-5.0); BILIRUBIN,TOTAL 0.6 mg/dL (0.2-1.0); CREATININE 1.4 mg/dL (0.5-1.5); CRP QUANTITATIVE 121.2 mg/L (0.00-9.0); POTASSIUM 3.6 mmol/L (3.5-5.1); TOTAL PROTEIN, SERUM 6.8 g/dL (6.0-8.3)
[2020-02-23 15:50] LABS: BASOPHILS % (AUTO) 0.2 % (0.0-5.0); HEMATOCRIT 32.7 % (36-48); MEAN CORPUSCULAR HEMOGLOBIN 24.8 pg (27.0-33.0); MEAN CORPUSCULAR HGB CONC 30.6 g/dL (32.0-36.0); MEAN CORPUSCULAR VOLUME 81.1 fL (79-99); MONOCYTES % (AUTO) 2.5 % (3.0-13.0); NEUTROPHILS % (AUTO) 88.6 % (40.0-77.0); NUCLEATED RED BLOOD CELLS 0.1 % (0.0-0.19); PLATELET COUNT (AUTO) 222 K/uL (130-400); RED BLOOD CELL COUNT(AUTO) 4.03 MIL/uL (4.00-5.50); RED CELL DISTRIBUTION WIDTH 17.1 % (11.0-15.5); WHITE BLOOD COUNT (AUTO) 19.5 K/uL (4.8-10.8)
[2020-02-23] MEDS: METHYLPREDNISOLONE SOD SUCC 125MG/2ML VIAL IVP SCH ×2 (17:05→21:54)
[2020-02-23] MEDS: CEFTRIAXONE SODIUM 1 GM IVP SCH (17:08)
[2020-02-23] MEDS: AZITHROMYCIN 500MG+NS 250ML 250 ML IV SCH (17:08)
[2020-02-23 17:40] VITALS: BP 161/75
[2020-02-23 20:31] VITALS: BP 185/94
[2020-02-23] MEDS: ZOLPIDEM TARTRATE 5 MG TAB PO SCH ×2 (20:52→21:00)
[2020-02-23] MEDS: ENOXAPARIN SODIUM 60 MG/0.6 ML SQ SCH (20:53)
[2020-02-23] MEDS: HYDROCHLOROTHIAZIDE 25 MG TABLET PO SCH (23:45)
[2020-02-23] MEDS: LISINOPRIL 10 MG TABLET PO SCH (23:45)
[2020-02-23] MEDS: AMLODIPINE BESYLATE 5 MG TAB PO SCH (23:45)
[2020-02-24] VITALS (10 sets, daily range): BP systolic 99–170; BP diastolic 63–99
[2020-02-24] MEDS: ALBUTEROL INHALER 90MCG/INH IH SCH ×6 (00:30→20:08)
[2020-02-24] MEDS ORDERED: METOPROLOL TARTRATE 1 MG/ML 5ML VIAL IV ONE (02:57)
[2020-02-24] MEDS ORDERED: METOPROLOL TARTRATE 1 MG/ML 5ML VIAL IV PRN (03:00)
--- NOTE | 2020-02-24 05:14 | NUR ---
Pt refused all HS p.o. medications this shift. This nurse notified by sitter pt noted to have irregular HR as shown via continuos monitor. electronic device monitor shows pt in and out of f A-fib. URMILA Barnhart notified via telephone orders to give Metoprolol 5mg IV q 6 hours for increased HR. Will continue to monitor for effectiveness.
[2020-02-24 05:35] LABS: HEMATOCRIT 31.7 % (36-48); MEAN CORPUSCULAR HEMOGLOBIN 25.1 pg (27.0-33.0); MEAN CORPUSCULAR HGB CONC 30.9 g/dL (32.0-36.0); MEAN CORPUSCULAR VOLUME 81.1 fL (79-99); RED BLOOD CELL COUNT(AUTO) 3.91 MIL/uL (4.00-5.50); RED CELL DISTRIBUTION WIDTH 17.1 % (11.0-15.5); WHITE BLOOD COUNT (AUTO) 18.3 K/uL (4.8-10.8)
[2020-02-24] MEDS ORDERED: DILTIAZEM HCL 5 MG/ML 5 ML VIAL IVP PRN (06:15)
[2020-02-24] MEDS: INSULIN LISPRO 100 UNIT/ML 3ML SQ SCH ×3 (06:40→16:41)
[2020-02-24] MEDS: METHYLPREDNISOLONE SOD SUCC 125MG/2ML VIAL IVP SCH ×3 (07:03→22:30)
[2020-02-24] MEDS: DILTIAZEM 125MG+100 ML NS 125 ML IV SCH ×3 (07:12→22:33)
[2020-02-24 07:42] LABS: ABG BASE EXCESS 1.4 mmol/L (-2.0-3.0); ABG HCO3 23.9 mmol/L (21.0-28.0); ABG OXYGEN SATURATION 86.6 % (95.0-99.0); ABG PCO2 32 mmHg (32-45)
[2020-02-24 07:50] LABS: CREATININE 1.1 mg/dL (0.5-1.5); POTASSIUM 4.1 mmol/L (3.5-5.1)
[2020-02-24] MEDS: ASPIRIN 81MG TAB.CHEW PO SCH (09:00)
[2020-02-24] MEDS: AMLODIPINE BESYLATE 5 MG TAB PO SCH ×2 (09:00→22:31)
[2020-02-24] MEDS: ZINC SULFATE 220 CAPSULE PO SCH (09:00)
[2020-02-24] MEDS: PANTOPRAZOLE SODIUM 40 MG TABLET.DR PO SCH (09:00)
[2020-02-24] MEDS: METOPROLOL TARTRATE 25 MG TAB PO SCH ×2 (09:00→20:09)
[2020-02-24] MEDS: ASCORBIC ACID 500 MG TAB PO SCH (09:00)
[2020-02-24] MEDS: LISINOPRIL 10 MG TABLET PO SCH ×2 (09:00→20:09)
[2020-02-24] MEDS: HYDROCHLOROTHIAZIDE 25 MG TABLET PO SCH ×2 (09:00→22:30)
[2020-02-24] MEDS: ENOXAPARIN SODIUM 60 MG/0.6 ML SQ SCH ×2 (10:30→21:11)
[2020-02-24 10:43] LABS: ABG BASE EXCESS 4.4 mmol/L (-2.0-3.0); ABG HCO3 27.6 mmol/L (21.0-28.0); ABG OXYGEN SATURATION 97.7 % (95.0-99.0); ABG PCO2 37 mmHg (32-45)
--- NOTE | 2020-02-24 14:39 | NUR ---
@4139, Family updated on patient status.
[2020-02-24] MEDS ORDERED: SODIUM CHLORIDE 0.9% 250 ML IV ONE (15:32)
[2020-02-24] MEDS: CEFTRIAXONE SODIUM 1 GM IVP SCH (18:00)
[2020-02-24] MEDS: AZITHROMYCIN 500MG+NS 250ML 250 ML IV SCH (18:07)
[2020-02-24] MEDS: ZOLPIDEM TARTRATE 5 MG TAB PO SCH (20:08)
[2020-02-24] MEDS: INSULIN GLARGINE 100 UNITS/ML 10 ML VIAL SQ SCH (22:30)
[2020-02-25] MEDS: ALBUTEROL INHALER 90MCG/INH IH SCH ×6 (00:45→20:45)
[2020-02-25 04:10] VITALS: BP 127/84
[2020-02-25] MEDS: METHYLPREDNISOLONE SOD SUCC 125MG/2ML VIAL IVP SCH ×3 (06:08→21:20)
[2020-02-25] MEDS: INSULIN LISPRO 100 UNIT/ML 3ML SQ SCH ×3 (06:10→17:05)
--- NOTE | 2020-02-25 07:46 | NUR ---
pt in afib Addendum: 02/25/20 at 1104 by CALVIN BRICEÑO RT Amended: Links added.
[2020-02-25 08:00] VITALS: BP 143/91
--- NOTE | 2020-02-25 08:30 | NUR ---
AM ASSESSMENT PT LAYING IN BED, HOB ELEVATED 30 DEGREES. BEDREST. ORIENTED TO NAME ONLY, CONFUSED PHRASES. SOB ON EXERTION. NO DISTRESS NOTED. PT CURRENTLY ON BIPAP 07/19, R14, FIO2 100%. TELE: AFIB. CARDIZEM GTT @ 10 MG/HR. NPO. NO N/V. 16 FR FC PATENT & DRAINING. MITTENS TO BOTH HANDS. BED @ LOWEST LEVEL. SIDE RAILS UP X 3. CURRENTLY PT HAS A SITTER.
[2020-02-25] MEDS: ZINC SULFATE 220 CAPSULE PO SCH (09:00)
[2020-02-25] MEDS: ASCORBIC ACID 500 MG TAB PO SCH (09:00)
[2020-02-25] MEDS: HYDROCHLOROTHIAZIDE 25 MG TABLET PO SCH (09:00)
[2020-02-25] MEDS: PANTOPRAZOLE SODIUM 40 MG TABLET.DR PO SCH (09:00)
[2020-02-25] MEDS: LISINOPRIL 10 MG TABLET PO SCH ×2 (09:00→21:19)
[2020-02-25] MEDS: ASPIRIN 81MG TAB.CHEW PO SCH (09:00)
[2020-02-25] MEDS: AMLODIPINE BESYLATE 5 MG TAB PO SCH (09:00)
[2020-02-25] MEDS: METOPROLOL TARTRATE 25 MG TAB PO SCH ×2 (09:00→21:00)
[2020-02-25] MEDS: ENOXAPARIN SODIUM 60 MG/0.6 ML SQ SCH ×2 (09:27→21:19)
[2020-02-25 11:00] VITALS: BP 134/69
--- NOTE | 2020-02-25 11:25 | NUR ---
AFIB PT IN AFIB 110-130s UNSUSTAINED. CARDIZEM GTT INFUSING @ 10 MG/HR. METOPROLOL 5 MG IV GIVEN @ THIS TIME. WILL CONTINUE TO MONITOR HR & BP.
[2020-02-25] MEDS ORDERED: HYDRALAZINE HCL 20 MG/ML VIAL IV PRN (14:45)
[2020-02-25] MEDS ORDERED: METOPROLOL TARTRATE 1 MG/ML 5ML VIAL IV PRN (14:45)
[2020-02-25] MEDS ORDERED: METOPROLOL TARTRATE 1 MG/ML 5ML VIAL IV SCH (15:15)
[2020-02-25 16:00] VITALS: BP 133/77
--- NOTE | 2020-02-25 16:20 | NUR ---
MD VISIT DR EVANS & Rebekah QUINTANA ENGINEERING FACULTY IN TO SEE PT. UPDATED ON PT'S STATUS & PLAN OF CARE REVIEWED. DR EVANS SPOKE W/PT'S DAUGHTER YOEL REGARDING PT'S CURRENT STATUS & PROGNOSIS. RESUSCITATION STATUS REVIEWED BY DR EVANS. FAMILY TO DECIDED & CALL BACK TO NOTIFY STAFF ON DECISION. Addendum: 02/25/20 at 1729 by GLADIS SEWELL RN RN ERROR ENTRY. CORRECT TIME OF MD VISIT 2399.
--- NOTE | 2020-02-25 16:20 | NUR ---
DNR STATUS CALL BACK RECEIVED FROM PT'S DAUGHTER YAZ. PT TO BE DNR STATUS. DNR STATUS REVIEWED & QUESTIONS CLARIFIED. PT TO BE DNR. MD TO BE NOTIFIED.
--- NOTE | 2020-02-25 16:26 | NUR ---
DNR STATUS Rebekah QUINTANA NP & DR EVANS NOTIFIED FAMILY HAS DECIDED FOR PT TO BE DNR STATUS. ORDER TO BE ENTERED. HOSPITALIST ALSO NOTIFIED.
[2020-02-25] MEDS: METOPROLOL TARTRATE 1 MG/ML 5ML VIAL IV SCH (17:05)
[2020-02-25 20:25] VITALS: BP 136/90
[2020-02-25] MEDS: ZOLPIDEM TARTRATE 5 MG TAB PO SCH (21:00)
[2020-02-25] MEDS: INSULIN GLARGINE 100 UNITS/ML 10 ML VIAL SQ SCH (21:53)
[2020-02-26] VITALS (8 sets, daily range): BP systolic 134–187; BP diastolic 61–95
[2020-02-26] MEDS: ALBUTEROL INHALER 90MCG/INH IH SCH ×6 (00:43→20:45)
[2020-02-26] MEDS: METOPROLOL TARTRATE 1 MG/ML 5ML VIAL IV SCH ×4 (00:43→17:09)
[2020-02-26] MEDS: METHYLPREDNISOLONE SOD SUCC 125MG/2ML VIAL IVP SCH ×3 (06:42→22:08)
[2020-02-26 07:03] LABS: BASOPHILS % (AUTO) 0.1 % (0.0-5.0); HEMATOCRIT 26.6 % (36-48); LYMPHOCYTES % (AUTO) 3.4 % (21.0-51.0); MEAN CORPUSCULAR HEMOGLOBIN 24.8 pg (27.0-33.0); MEAN CORPUSCULAR HGB CONC 30.5 g/dL (32.0-36.0); MEAN CORPUSCULAR VOLUME 81.6 fL (79-99); MONOCYTES % (AUTO) 3.1 % (3.0-13.0); NEUTROPHILS % (AUTO) 92.4 % (40.0-77.0); PLATELET COUNT (AUTO) 201 K/uL (130-400); RED BLOOD CELL COUNT(AUTO) 3.26 MIL/uL (4.00-5.50); RED CELL DISTRIBUTION WIDTH 17.6 % (11.0-15.5); WHITE BLOOD COUNT (AUTO) 14.8 K/uL (4.8-10.8)
[2020-02-26 07:20] LABS: ALBUMIN 2.1 g/dL (3.5-5.0); BILIRUBIN,TOTAL 0.5 mg/dL (0.2-1.0); CREATININE 1.1 mg/dL (0.5-1.5); CRP QUANTITATIVE 56.5 mg/L (0.00-9.0); MAGNESIUM 2.4 mg/dL (1.80-2.40); PHOSPHORUS 2.8 mg/dL (2.5-4.9); POTASSIUM 3.2 mmol/L (3.5-5.1); TOTAL PROTEIN, SERUM 5.7 g/dL (6.0-8.3)
[2020-02-26] MEDS: INSULIN LISPRO 100 UNIT/ML 3ML SQ SCH ×3 (07:30→17:09)
--- NOTE | 2020-02-26 07:30 | NUR ---
HTN BP 183/87. 10 MG IV HYDRALAZINE GIVEN. BP TO BE RECHECKED.
[2020-02-26] MEDS: ENOXAPARIN SODIUM 60 MG/0.6 ML SQ SCH ×2 (07:46→22:08)
--- NOTE | 2020-02-26 08:30 | NUR ---
HTN BP RECHECK 165/61.
[2020-02-26] MEDS: METOPROLOL TARTRATE 25 MG TAB PO SCH ×2 (08:45→20:07)
[2020-02-26] MEDS: ASPIRIN 81MG TAB.CHEW PO SCH (08:45)
[2020-02-26] MEDS: AMLODIPINE BESYLATE 5 MG TAB PO SCH (08:45)
[2020-02-26] MEDS: HYDROCHLOROTHIAZIDE 25 MG TABLET PO SCH (08:45)
[2020-02-26] MEDS: PANTOPRAZOLE SODIUM 40 MG TABLET.DR PO SCH (08:45)
[2020-02-26] MEDS: ASCORBIC ACID 500 MG TAB PO SCH (08:45)
[2020-02-26] MEDS: ZINC SULFATE 220 CAPSULE PO SCH (08:45)
[2020-02-26] MEDS: LISINOPRIL 10 MG TABLET PO SCH ×2 (08:45→20:07)
[2020-02-26 10:25] LABS: ABG BASE EXCESS 2.1 mmol/L (-2.0-3.0); ABG HCO3 24.2 mmol/L (21.0-28.0); ABG OXYGEN SATURATION 97.1 % (95.0-99.0); ABG PCO2 31 mmHg (32-45)
--- NOTE | 2020-02-26 13:15 | NUR ---
[facility] update/discharged from [facility] Spoke to Shahla Johnson NP with [facility] who states patient is not doing well and will not tolerate transfer back to [facility]. Patient has received convalescent plasma, but is still on 100% Bipap and recently made a DNR. Updated Abigail with [facility] of above who states will go ahead and close out case and if plan is to return to [facility], CM will need to submit a new referral. CD Addendum: 02/26/20 at 1317 by ANGELO HEARN Amended: Links added.
[2020-02-26] MEDS ORDERED: ENALAPRILAT DIHYDRATE 1.25MG/ML 1ML VIAL IV ONE (14:12)
[2020-02-26] MEDS ORDERED: PHARMACY COMMUNICATION MISC SCH (14:15)
[2020-02-26] MEDS: ENALAPRILAT DIHYDRATE 1.25MG/ML 1ML VIAL IV SCH ×2 (14:59→22:08)
[2020-02-26] MEDS: DEXTROSE 5%-WATER 1,000 ML IV SCH (15:14)
[2020-02-26 16:35] LABS: APPEARANCE,URINE CLOUDY (CLEAR); BILIRUBIN,URINE SMALL (NEGATIVE); COLOR,URINE YELLOW (YELLOW); GLUCOSE, URINE (UA) NEGATIVE (NEGATIVE); KETONES,URINE 5 mg/dL (NEGATIVE); LEUKOCYTE ESTERASE ,URINE SMALL (NEGATIVE); NITRATE,URINE NEGATIVE (NEGATIVE); OCCULT BLOOD,URINE LARGE (NEGATIVE); PH,URINE 5.5 (5.0-8.0); PROTEIN,URINE 100 mg/dL (NEGATIVE); UROBILINOGEN,URINE 0.2 mg/dL (0.2-1.0)
[2020-02-26 16:58] LABS: BACTERIA,URINE Few /HPF (None Seen); MUCUS,URINE Few LPF (None Seen); SQUAMOUS EPITHELIAL CELL,UR Moderate /HPF (0-2); YEAST,URINE BUDDING Many /HPF (None Seen)
[2020-02-26] MEDS: ZOLPIDEM TARTRATE 5 MG TAB PO SCH (20:07)
[2020-02-26] MEDS: INSULIN GLARGINE 100 UNITS/ML 10 ML VIAL SQ SCH (22:03)
[2020-02-27] MEDS: ALBUTEROL INHALER 90MCG/INH IH SCH ×6 (00:45→20:45)
[2020-02-27] MEDS: METOPROLOL TARTRATE 1 MG/ML 5ML VIAL IV SCH ×5 (01:54→23:43)
[2020-02-27 03:13] LABS: ABG BASE EXCESS 3.5 mmol/L (-2.0-3.0); ABG HCO3 27.1 mmol/L (21.0-28.0); ABG OXYGEN SATURATION 98.4 % (95.0-99.0); ABG PCO2 38 mmHg (32-45)
[2020-02-27] MEDS: DEXTROSE 5%-WATER 1,000 ML IV SCH ×2 (03:21→17:11)
[2020-02-27] MEDS: ENALAPRILAT DIHYDRATE 1.25MG/ML 1ML VIAL IV SCH ×4 (03:21→21:51)
[2020-02-27 03:22] VITALS: BP 155/65
[2020-02-27] MEDS: METHYLPREDNISOLONE SOD SUCC 125MG/2ML VIAL IVP SCH (05:37)
[2020-02-27 05:56] LABS: HEMATOCRIT 27.7 % (36-48); MEAN CORPUSCULAR HEMOGLOBIN 25.4 pg (27.0-33.0); MEAN CORPUSCULAR VOLUME 84.7 fL (79-99); NUCLEATED RED BLOOD CELLS 0.1 % (0.0-0.19); PLATELET COUNT (AUTO) 190 K/uL (130-400); RED BLOOD CELL COUNT(AUTO) 3.27 MIL/uL (4.00-5.50); WHITE BLOOD COUNT (AUTO) 14.7 K/uL (4.8-10.8)
[2020-02-27 06:25] LABS: CREATININE 1.1 mg/dL (0.5-1.5); MAGNESIUM 2.4 mg/dL (1.80-2.40)
[2020-02-27] MEDS: INSULIN LISPRO 100 UNIT/ML 3ML SQ SCH ×3 (06:43→17:11)
[2020-02-27] MEDS: PANTOPRAZOLE SODIUM 40 MG TABLET.DR PO SCH (07:47)
[2020-02-27] MEDS: ASPIRIN 81MG TAB.CHEW PO SCH (07:47)
[2020-02-27] MEDS: LISINOPRIL 10 MG TABLET PO SCH ×2 (07:48→21:00)
[2020-02-27] MEDS: AMLODIPINE BESYLATE 5 MG TAB PO SCH (07:48)
[2020-02-27] MEDS: METOPROLOL TARTRATE 25 MG TAB PO SCH ×2 (07:48→21:51)
[2020-02-27] MEDS: HYDROCHLOROTHIAZIDE 25 MG TABLET PO SCH (07:48)
[2020-02-27] MEDS: ASCORBIC ACID 500 MG TAB PO SCH (07:48)
[2020-02-27] MEDS: ZINC SULFATE 220 CAPSULE PO SCH (07:48)
[2020-02-27 08:00] VITALS: BP 140/76
[2020-02-27] MEDS: ENOXAPARIN SODIUM 60 MG/0.6 ML SQ SCH ×2 (09:38→21:53)
[2020-02-27 11:00] VITALS: BP 169/70
[2020-02-27] MEDS ORDERED: LIDOCAINE HCL-MPF 1% 2ML VIAL IV PRN (14:30)
[2020-02-27] MEDS ORDERED: POTASSIUM CHLORIDE 20MEQ/100ML 100 ML IV PRN (14:30)
[2020-02-27 15:00] VITALS: BP 168/86
[2020-02-27] MEDS: POTASSIUM CHLORIDE 20MEQ/100ML 100 ML IV PRN ×2 (15:24→18:13)
[2020-02-27] MEDS ORDERED: POTASSIUM CHLORIDE 20 MEQ in DEXTROSE 5%-WATER 1,000 ML IV SCH (17:28)
[2020-02-27] MEDS: INSULIN GLARGINE 100 UNITS/ML 10 ML VIAL SQ SCH ×2 (18:16→22:03)
[2020-02-27 19:01] VITALS: BP 186/82
[2020-02-27] MEDS: ZOLPIDEM TARTRATE 5 MG TAB PO SCH (21:00)
[2020-02-27] MEDS ORDERED: METHYLPREDNISOLONE SOD SUCC 125MG/2ML VIAL IVP SCH (21:00)
[2020-02-27 23:02] VITALS: BP 105/86
[2020-02-28] MEDS: ALBUTEROL INHALER 90MCG/INH IH SCH ×6 (00:11→20:45)
[2020-02-28 03:36] VITALS: BP 181/93
[2020-02-28] MEDS: ENALAPRILAT DIHYDRATE 1.25MG/ML 1ML VIAL IV SCH (03:36)
[2020-02-28 03:55] LABS: BASOPHILS % (AUTO) 0.2 % (0.0-5.0); EOSINOPHILS % (AUTO) 0.1 % (0.0-8.0); HEMATOCRIT 27.7 % (36-48); LYMPHOCYTES % (AUTO) 4.1 % (21.0-51.0); MEAN CORPUSCULAR HEMOGLOBIN 24.9 pg (27.0-33.0); MEAN CORPUSCULAR VOLUME 83.2 fL (79-99); MONOCYTES % (AUTO) 1.4 % (3.0-13.0); NEUTROPHILS % (AUTO) 93.5 % (40.0-77.0); PLATELET COUNT (AUTO) 176 K/uL (130-400); RED BLOOD CELL COUNT(AUTO) 3.33 MIL/uL (4.00-5.50); RED CELL DISTRIBUTION WIDTH 18.1 % (11.0-15.5); WHITE BLOOD COUNT (AUTO) 15.6 K/uL (4.8-10.8)
[2020-02-28 04:17] LABS: CRP QUANTITATIVE 24.7 mg/L (0.00-9.0); POTASSIUM 4.6 mmol/L (3.5-5.1)
[2020-02-28] MEDS: METOPROLOL TARTRATE 1 MG/ML 5ML VIAL IV SCH ×3 (06:06→17:22)
[2020-02-28] MEDS: DEXTROSE 5%-WATER 1,000 ML IV SCH ×2 (06:06→10:28)
[2020-02-28] MEDS: INSULIN LISPRO 100 UNIT/ML 3ML SQ SCH ×2 (06:35→11:30)
--- NOTE | 2020-02-28 07:25 | NUR ---
Pt removed bipap. Oxygen sat 70%. Replaced bipap. Called respirtory to assess pt. Sating at 91%. Will continue to monitor.
[2020-02-28 08:00] VITALS: BP 187/80
[2020-02-28] MEDS: ZINC SULFATE 220 CAPSULE PO SCH (09:00)
[2020-02-28] MEDS: PANTOPRAZOLE SODIUM 40 MG TABLET.DR PO SCH (09:00)
[2020-02-28] MEDS: ASCORBIC ACID 500 MG TAB PO SCH (09:00)
[2020-02-28] MEDS: INSULIN GLARGINE 100 UNITS/ML 10 ML VIAL SQ SCH ×2 (09:00→20:57)
[2020-02-28] MEDS: ASPIRIN 81MG TAB.CHEW PO SCH (09:00)
[2020-02-28] MEDS: AMLODIPINE BESYLATE 5 MG TAB PO SCH (09:00)
[2020-02-28] MEDS: METOPROLOL TARTRATE 25 MG TAB PO SCH ×2 (09:00→20:56)
[2020-02-28] MEDS: HYDROCHLOROTHIAZIDE 25 MG TABLET PO SCH (09:00)
[2020-02-28] MEDS: LISINOPRIL 10 MG TABLET PO SCH ×2 (09:00→20:56)
[2020-02-28] MEDS ORDERED: HYDRALAZINE HCL 20 MG/ML VIAL IV PRN (09:15)
--- NOTE | 2020-02-28 09:52 | NUR ---
Dr. Victor Manuel chino on pt reported Calcium 6.8 and K 4.6, BUN 53, and elevated blood pressure with drop in HR to 30's. Pt on D5w with K gave order to stop D5w with K and start d5w @40ml/hr. BP 187/80 gave orders to stop vasotec and metoprolol. Gave order for hydralazine 10mg ivp q4h prn for sbp >170. would like to leave all PO meds on pt profile at this time. Pt not taking PO meds now. Per it is okay to give sips of water if tolerated.
[2020-02-28] MEDS ORDERED: ENOXAPARIN SODIUM 40 MG/0.4 ML SYRINGE SQ SCH (10:00)
[2020-02-28 11:00] VITALS: BP 142/95
--- NOTE | 2020-02-28 11:28 | NUR ---
Attempted to give pt ice chips, did not tolerate. Unable to drink water. Pt had BM changed brief with assistance from tech. Turned pt to right side with pillow.
--- NOTE | 2020-02-28 12:07 | NUR ---
Pt has unstable HR drop the 30's in the AM. Gave hydralazine for SBP >200. Will monitor HR and give metoprolol at next scheduled dose.
[2020-02-28 16:00] VITALS: BP 185/55
--- NOTE | 2020-02-28 16:25 | NUR ---
Assist tech with turning pt to left side.
--- NOTE | 2020-02-28 17:23 | NUR ---
Elevated right hand on pillow due to swelling.
--- NOTE | 2020-02-28 17:58 | NUR ---
Oxygen sat drop to 60's called CRIMINOLOGY PROFESSOR. Assessed the patient RT increased FiO2 to 100%.Changed pulse oximeter from ear to left hand. Reposition pt to right side. HR increased to 144 and drop down to 90. Called tele confirmed that pt in afib. Gave scheduled IV metoprolol. 79% 100 HR. Will continue to monitor pt.
[2020-02-28] MEDS: ENOXAPARIN SODIUM 80 MG/0.8 ML SQ SCH (19:53)
[2020-02-28 20:43] VITALS: BP 126/81
[2020-02-28] MEDS: ZOLPIDEM TARTRATE 5 MG TAB PO SCH (20:55)
[2020-02-28 23:54] VITALS: BP 120/52
[2020-02-29] MEDS: METOPROLOL TARTRATE 1 MG/ML 5ML VIAL IV SCH ×3 (00:19→11:33)
[2020-02-29] MEDS: ALBUTEROL INHALER 90MCG/INH IH SCH ×5 (00:19→16:45)
[2020-02-29 03:46] VITALS: BP 124/80
[2020-02-29 05:55] LABS: BASOPHILS % (AUTO) 0.1 % (0.0-5.0); EOSINOPHILS % (AUTO) 0.6 % (0.0-8.0); HEMATOCRIT 28.5 % (36-48); LYMPHOCYTES % (AUTO) 4.4 % (21.0-51.0); MEAN CORPUSCULAR HEMOGLOBIN 25.3 pg (27.0-33.0); MEAN CORPUSCULAR HGB CONC 30.2 g/dL (32.0-36.0); MEAN CORPUSCULAR VOLUME 83.8 fL (79-99); MONOCYTES % (AUTO) 0.8 % (3.0-13.0); NEUTROPHILS % (AUTO) 93.3 % (40.0-77.0); PLATELET COUNT (AUTO) 120 K/uL (130-400); RED CELL DISTRIBUTION WIDTH 18.6 % (11.0-15.5); WHITE BLOOD COUNT (AUTO) 14.3 K/uL (4.8-10.8)
[2020-02-29 06:28] LABS: ALBUMIN 1.7 g/dL (3.5-5.0); BILIRUBIN,TOTAL 0.5 mg/dL (0.2-1.0); CREATININE 1.2 mg/dL (0.5-1.5); PHOSPHORUS 3.3 mg/dL (2.5-4.9); POTASSIUM 3.7 mmol/L (3.5-5.1); TOTAL PROTEIN, SERUM 5.1 g/dL (6.0-8.3)
[2020-02-29] MEDS: ENOXAPARIN SODIUM 80 MG/0.8 ML SQ SCH ×2 (06:31→18:10)
[2020-02-29] MEDS: ASPIRIN 81MG TAB.CHEW PO SCH (07:46)
[2020-02-29] MEDS: PANTOPRAZOLE SODIUM 40 MG TABLET.DR PO SCH (07:47)
[2020-02-29] MEDS: AMLODIPINE BESYLATE 5 MG TAB PO SCH (07:47)
[2020-02-29] MEDS: ZINC SULFATE 220 CAPSULE PO SCH (07:47)
[2020-02-29] MEDS: METOPROLOL TARTRATE 25 MG TAB PO SCH (07:47)
[2020-02-29] MEDS: HYDROCHLOROTHIAZIDE 25 MG TABLET PO SCH (07:47)
[2020-02-29] MEDS: LISINOPRIL 10 MG TABLET PO SCH (07:47)
[2020-02-29] MEDS: ASCORBIC ACID 500 MG TAB PO SCH (07:47)
[2020-02-29 08:00] VITALS: BP 155/75
[2020-02-29 08:07] LABS: CRP QUANTITATIVE 169.9 mg/L (0.00-9.0)
[2020-02-29] MEDS: INSULIN GLARGINE 100 UNITS/ML 10 ML VIAL SQ SCH (09:00)
[2020-02-29] MEDS ORDERED: ENOXAPARIN SODIUM 40 MG/0.4 ML SYRINGE SQ SCH (09:00)
[2020-02-29] MEDS: DEXTROSE 5%-WATER 1,000 ML IV SCH (09:40)
--- NOTE | 2020-02-29 10:33 | NUR ---
Return call to pt daughter. Provided update. Daughter would like to zoom with pt. Plan to set up meeting around 1pm.
[2020-02-29 11:00] VITALS: BP 178/48
[2020-02-29] MEDS: METHYLPREDNISOLONE SOD SUCC 125MG/2ML VIAL IVP SCH ×2 (13:17→18:10)
[2020-02-29 13:24] LABS: ABG BASE EXCESS -3.9 mmol/L (-2.0-3.0); ABG HCO3 27.9 mmol/L (21.0-28.0); ABG OXYGEN SATURATION 80.2 % (95.0-99.0); ABG PCO2 87 mmHg (32-45)
--- NOTE | 2020-02-29 14:44 | NUR ---
Pt de-sat 74%. 100% on the bipap. Called respiratory. Will assess the patient and bipap settings. Turned pt to left side.
--- NOTE | 2020-02-29 15:47 | NUR ---
Assist tech in turning pt to right side.
[2020-02-29 16:00] VITALS: BP 92/46
[2020-02-29] MEDS ORDERED: INSULIN HUMULIN R 100 UNIT/ML 3ML SQ SCH (16:30)
[2020-02-29] MEDS ORDERED: FUROSEMIDE 10 MG/ML 4ML VIAL IV SCH ×2 (17:00→18:00)
--- NOTE | 2020-02-29 17:26 | NUR ---
Dr. Rush ordered lasix 40 bid last BP /46 will hold this dose of lasix.
[2020-02-29 17:30] VITALS: BP 92/46
[2020-02-29] MEDS ORDERED: METOPROLOL TARTRATE 1 MG/ML 5ML VIAL IV SCH (18:00)
--- NOTE | 2020-02-29 20:00 | NUR ---
Summoned by staff occupational therapist for patient not breathing or heartbeat. Breath sounds and pulse absent. Pupils fixed and dilated. primary MD and family notified.
== END 2020-02-29 20:00 | disposition expired | DRG 871 ==
LOC: EDH 11:32 → EDHIP 14:20 → 2DH 02-20 23:31
PROVIDERS: ADMIT Hospitalist; ATTEND Hospitalist
PROC: 30233K1 Transfusion of Nonautologous Frozen Plasma into Peripheral Vein, Percutaneous Approach (ICD-10-PCS; principal; 2020-02-18)
PROC: 02HV33Z Insertion of Infusion Device into Superior Vena Cava, Percutaneous Approach (ICD-10-PCS; 2020-02-18)
PROC: 5A09357 Assistance with Respiratory Ventilation, Less than 24 Consecutive Hours, Continuous Positive Airway Pressure (ICD-10-PCS; 2020-02-24)
PROC: 5A09357 Assistance with Respiratory Ventilation, Less than 24 Consecutive Hours, Continuous Positive Airway Pressure (ICD-10-PCS; 2020-02-25)
PROC: 5A09457 Assistance with Respiratory Ventilation, 24-96 Consecutive Hours, Continuous Positive Airway Pressure (ICD-10-PCS; 2020-02-26)
DX: A41.89 Other specified sepsis (principal); U07.1 COVID-19; J12.89 Other viral pneumonia; G93.41 Metabolic encephalopathy; J96.01 Acute respiratory failure with hypoxia; J44.0 Chronic obstructive pulmonary disease with (acute) lower respiratory infection; D68.59 Other primary thrombophilia; E87.0 Hyperosmolality and hypernatremia; E87.1 Hypo-osmolality and hyponatremia; I82.411 Acute embolism and thrombosis of right femoral vein; N39.0 Urinary tract infection, site not specified; Z16.24 Resistance to multiple antibiotics; N17.9 Acute kidney failure, unspecified; B96.89 Other specified bacterial agents as the cause of diseases classified elsewhere; D64.9 Anemia, unspecified; E03.9 Hypothyroidism, unspecified; E11.40 Type 2 diabetes mellitus with diabetic neuropathy, unspecified; E66.9 Obesity, unspecified; E78.5 Hyperlipidemia, unspecified; E87.6 Hypokalemia; F03.90 Unspecified dementia, unspecified severity, without behavioral disturbance, psychotic disturbance, mood disturbance, and anxiety; F41.9 Anxiety disorder, unspecified; G89.29 Other chronic pain; I25.10 Atherosclerotic heart disease of native coronary artery without angina pectoris; I48.91 Unspecified atrial fibrillation; M19.90 Unspecified osteoarthritis, unspecified site; R13.12 Dysphagia, oropharyngeal phase; Z66 Do not resuscitate; Z68.34 Body mass index [BMI] 34.0-34.9, adult; Z88.2 Allergy status to sulfonamides; I12.9 Hypertensive chronic kidney disease with stage 1 through stage 4 chronic kidney disease, or unspecified chronic kidney disease; E11.22 Type 2 diabetes mellitus with diabetic chronic kidney disease; R53.81 Other malaise; N18.9 Chronic kidney disease, unspecified; Z88.8 Allergy status to other drugs, medicaments and biological substances; Z91.048 Other nonmedicinal substance allergy status; Z74.01 Bed confinement status; Z79.4 Long term (current) use of insulin; Z79.82 Long term (current) use of aspirin; Z79.899 Other long term (current) drug therapy; Z95.5 Presence of coronary angioplasty implant and graft; Z95.0 Presence of cardiac pacemaker; Z90.710 Acquired absence of both cervix and uterus; Z91.041 Radiographic dye allergy status; Z87.440 Personal history of urinary (tract) infections; Z83.3 Family history of diabetes mellitus; Z82.5 Family history of asthma and other chronic lower respiratory diseases; Z82.49 Family history of ischemic heart disease and other diseases of the circulatory system; Z82.3 Family history of stroke; Z82.0 Family history of epilepsy and other diseases of the nervous system; Z80.49 Family history of malignant neoplasm of other genital organs; Z80.1 Family history of malignant neoplasm of trachea, bronchus and lung
CPT/HCPCS: 0099U; 36415; 36430; 36600; 71045; 80048; 80053; 81001; 82306; 82330; 82435; 82550; 82728; 82803; 82947; 82948; 83605; 83615; 83735; 83874; 83935; 84100; 84132; 84145; 84295; 84300; 84484; 85018; 85025; 85027; 85378; 85610; 85730; 86140; 86850; 86900; 86901; 86927; 87040; 87088; 87804; 93005; 93970; 94660; 99291; G0378; J0282; J0360; J0456; J0696; J1100; J1650; J1815; J1940; J2930; J2997; J3480; J3490; J7050; J7060; J7070; P9017; Q9967